=== PATIENT | male | born 1950 | race Caucasian/White ===

== ENCOUNTER 2021-12-10 09:49 | Outpatient (REF) | payer MEDICARE, MEDICAID, SELFPAY ==
[2021-12-10 10:53] LABS: MANUAL DIFF FLAG NO
[2021-12-10 10:56] LABS: Basophils Percent Auto 0.4 % (0-2); Eosinophils Absolute Auto 0.4 X10*3/uL (0.0-0.4); Eosinophils Percent Auto 5.5 % (0-4); Hematocrit 46.7 % (42.0-52.0); Hemoglobin 16.4 g/dl (14.0-18.0); Imm Gran Abs Auto 0.03 X10*3/uL (0.00-0.03); Imm Gran Pct Auto 0.4 % (0.0-0.4); Lymphocytes Absolute Auto 1.6 X10*3/uL (1.2-4.9); Lymphocytes Percent Auto 22.5 % (20-40); Mean Corpuscular HGB Conc 35.1 g/dl (31.0-36.0); Mean Corpuscular Hemoglobin 30.4 pg (27.0-33.0); Mean Corpuscular Volume 86.6 fL (80.0-98.0); Mean Platelet Volume 10.8 fL (9.4-12.4); Monocytes Absolute Auto 0.5 X10*3/uL (0.1-1.2); Monocytes Percent Auto 6.8 % (2-11); Neutrophils Absolute Auto 4.5 x10*3/uL (2.0-8.3); Neutrophils Percent Auto 64.4 % (45-73); Platelet Count 163 X10*3/uL (160-400); Red Blood Count 5.39 X10*6/uL (4.60-5.80); Red Cell Distribution Width 12.6 % (11.0-16.0); White Blood Count 7.1 X10*3/uL (4.8-10.8)
[2021-12-10 11:37] LABS: Appearance Urine CLEAR; Color Urine YELLOW; Glucose Urine UA NEG (NEG); Leukocyte Esterase Urine NEG (NEG); Nitrite Urine NEG (NEG); Specific Gravity - Urine 1.025 (1.005-1.025); Urine Blood TRACE (NEG); Urine Ketones NEG (NEG); Urine Protein NEG (NEG-TRACE)
[2021-12-10 11:46] LABS: Alanine Aminotransferase 20 U/L (0-40); Albumin Level 4.4 g/dL (3.5-5.0); Alkaline Phosphatase 81 U/L (39-117); Anion Gap 12 (12-20); Aspartate Amino Transferase 17 U/L (5-37); Bilirubin Total 0.7 mg/dL (0.0-1.0); Blood Urea Nitrogen 20 mg/dL (9-16); Calcium 9.2 mg/dL (8.4-10.2); Carbon Dioxide 27 mmol/L (22-29); Chloride 104 mmol/L (96-108); Cholesterol 143 mg/dL; Estimated Glomerular Filt Rate > 60; Glucose Fasting 102 mg/dL (60-99); HDL Cholesterol 41 mg/dL; LDL Cholesterol Calculated 77 mg/dl; Sodium 139 mmol/L (135-145); Triglycerides 128 mg/dL
[2021-12-10 11:53] LABS: WBC Urine 0 /HPF (0-4)
[2021-12-10 11:54] LABS: Squamous Epithelial Cell Urine TRACE /LPF
[2021-12-10 12:16] LABS: Prostate Specific Antigen Scr 4.11 ng/mL (<0.05-4.0); TSH reflex Free T4 1.37 uIU/mL (0.32-4.0)
[2021-12-10 12:18] LABS: Creatinine Urine 149.29 mg/dL; Microalbum/Creatinine Ratio Ur 5.3 ug/mg cr
== END 2021-12-10 09:50 | disposition home or self-care (01) ==
LOC: HO.WFDLDS 09:49
PROVIDERS: Visit Provider Family Medicine
DX: Z00.00 Encounter for general adult medical examination without abnormal findings (principal); Z12.5 Encounter for screening for malignant neoplasm of prostate; I10 Essential (primary) hypertension
CPT/HCPCS: 36415; 80053; 80061; 81001; 82043; 84153; 84443; 85025

== ENCOUNTER 2022-01-27 08:17 | Outpatient (REF) | payer MEDICARE, MEDICAID, SELFPAY ==
--- NOTE | ~2022-01-27 | XR_ITS ---
EXAMINATION: XR KNEE, RIGHT XR KNEE, LEFT CLINICAL INFORMATION: Pain. COMPARISON: None. TECHNIQUE: Lateral and axial views of the right knee. Lateral and axial views of the left knee. FINDINGS: RIGHT KNEE: Bones and soft tissues are normal. No fracture or joint effusion. Alignment is anatomic. Joint spaces are well maintained. There is minimal osteoarthritic change of the patellofemoral compartment laterally. No abnormal soft tissue calcification. LEFT KNEE: Bones and soft tissues are normal. No fracture or joint effusion. Alignment is anatomic. Joint spaces are well maintained. No abnormal soft tissue calcification. XR/XR knee LT 2V IMPRESSION: 1. There is minimal osteoarthritic change of the patellofemoral compartment of the right knee. 2. Unremarkable left knee radiographs. 3. No fracture, dislocation or joint effusion is seen bilaterally.
--- NOTE | ~2022-01-27 | XR_ITS ---
EXAMINATION: XR KNEE AP STANDING CLINICAL INFORMATION: Knee pain. COMPARISON: None TECHNIQUE: AP bilateral standing view of the knees was obtained. FINDINGS: There is maintained medial and lateral compartment joint space both knees maintained normal. No bony erosive changes. There is osteophyte formation along the medial femoral condyle suggestive Samantha stieda lesion left knee from old injury. No acute fracture or lytic process seen. XR/XR knee standing BI IMPRESSION: No acute fracture, dislocation subluxation in either knee joint. Pelligrini Stieda lesion medial femoral condyle right knee from old medial collateral ligament injury
--- NOTE | ~2022-01-27 | XR_ITS ---
EXAMINATION: XR KNEE, RIGHT XR KNEE, LEFT CLINICAL INFORMATION: Pain. COMPARISON: None. TECHNIQUE: Lateral and axial views of the right knee. Lateral and axial views of the left knee. FINDINGS: RIGHT KNEE: Bones and soft tissues are normal. No fracture or joint effusion. Alignment is anatomic. Joint spaces are well maintained. There is minimal osteoarthritic change of the patellofemoral compartment laterally. No abnormal soft tissue calcification. LEFT KNEE: Bones and soft tissues are normal. No fracture or joint effusion. Alignment is anatomic. Joint spaces are well maintained. No abnormal soft tissue calcification. XR/XR knee RT 2V IMPRESSION: 1. There is minimal osteoarthritic change of the patellofemoral compartment of the right knee. 2. Unremarkable left knee radiographs. 3. No fracture, dislocation or joint effusion is seen bilaterally.
== END 2022-01-27 08:18 | disposition home or self-care (01) ==
LOC: HO.HOSX 08:17
PROVIDERS: Visit Provider Physician Assistant
DX: M17.0 Bilateral primary osteoarthritis of knee (principal); M54.16 Radiculopathy, lumbar region
CPT/HCPCS: 20610; 73560; 73565; 99202; J1040

== ENCOUNTER → 2022-02-17 14:51 | Outpatient (BNVA) | payer MEDICARE, MEDICAID, SELFPAY | PROVIDERS: Visit Provider Nurse Practitioner Family | DX: M47.26 Other spondylosis with radiculopathy, lumbar region (principal); M62.830 Muscle spasm of back | CPT/HCPCS: 99202 ==

== ENCOUNTER 2022-04-07 11:13 | Outpatient (REF) | payer MEDICARE, MEDICAID, SELFPAY ==
--- NOTE | ~2022-04-07 | XR_ITS ---
EXAMINATION: XR LUMBOSACRAL SPINE WITH OBLIQUES CLINICAL INFORMATION: Spondylosis without myelopathy or radiculopathy. COMPARISON: None. TECHNIQUE: AP, both oblique, and lateral views of the lumbar spine. Lateral view of the lumbosacral junction. FINDINGS: There is maintained lumbar lordosis. The vertebral heights and alignment are normal. There is minimal loss of L5-S1 disc height. The rest the disc heights are normal. On oblique views, there is no pars defect or listhesis. No lytic or sclerotic process seen. There is a ventral spondylosis at the L5-S1 disc level. The paravertebral soft tissues are normal. XR/XR lumbar spine 6V w bending IMPRESSION: Degenerative disc changes with ventral spondylosis L5-S1 disc level. No visible acute fracture or dislocation seen.
== END 2022-04-07 11:14 | disposition home or self-care (01) ==
LOC: HO.XRAY 11:13
PROVIDERS: PCP Family Medicine; Visit Provider Nurse Practitioner Family
DX: M47.26 Other spondylosis with radiculopathy, lumbar region (principal); M62.830 Muscle spasm of back
CPT/HCPCS: 72114; 99212

== ENCOUNTER 2023-03-24 09:59 | Outpatient (REF) | payer MEDICARE, MEDICAID, SELFPAY ==
[2023-03-24 12:11] LABS: Prostate Specific Antigen Scr 2.89 ng/mL (<0.05-4.0)
== END 2023-03-24 10:00 | disposition home or self-care (01) ==
LOC: HO.WFDLDS 09:59
PROVIDERS: Visit Provider Family Medicine
DX: Z12.5 Encounter for screening for malignant neoplasm of prostate (principal); R97.20 Elevated prostate specific antigen [PSA]
CPT/HCPCS: 36415; 84153

== ENCOUNTER 2023-03-31 15:57 | Outpatient (AMB) | payer MEDICARE, MEDICAID, SELFPAY ==
[2023-03-31 16:04] VITALS: BP 142/74; PULSE 75; O2SAT 96; BMI 23.1
--- NOTE | 2023-03-31 16:04 | A.OFFPC_ITS ---
Vital Signs 03/31/23 16:04 Height 6 ft Weight 170 lb 6 oz BMI 23.1 BP 142/74 H Blood Pressure Location Lt brachial Position Sitting Pulse 75 Pulse Source Pulse Oximeter Pulse Oximetry (%) 96 Oxygen Delivery Method Room Air Intake Visit Reasons: Extended exam with f/u labs and health maint. Intake Note: Patient is here for extended exam with patient complaint if headache pain level at a 10. Patient is concerned about blood pressure jumping around. Sometimes high, sometimes low. Allergies influenza virus vacc trivalent, who Allergy (Intermediate, Verified 03/31/23 16:13) Vomiting, rash Tobacco use date assessed: 03/31/23 Fall risk assessment: No Falls in past year Last assessed Fall Risk: 03/31/23 Dental Screening Dental Screen Date: 03/31/23 Did you have a dental visit in the last 12 months?: Yes Did you have a dental problem in the last 6 months where you did not have access to dental care?: No Was dental information given to patient?: Patient has dentist HPI Extended exam with f/u labs and health maint. HPI Details 72 y/o male presents for an extended exa m with f/u labs and health maintenance. No recent labs to review. Blood pressure today 142/74. He is on losartan-hydrochlorothiazide 50-12.5mg daily. He notes that sometimes his blood pressure at home have been elevated. Pt has complaints of a headache daily at night time. He describes headache as a 10 in the pain scale. He reports he has trialed topiramate before. Pt reports a cough x6 months. He denies smoking. [facility] Medical History Melanoma Surgical History History of eye surgery History of hernia surgery History of lung surgery History of surgery Social History Housing: House Alcohol intake: never Patient Tobacco Use Status: Never used Tobacco e-Cigarette/Vaping Use: Never Used Second Hand Smoke Exposure: No service: No Current occupational status: retired Cognitive needs: Yes (walker/cane) Hearing needs: Yes (hear aide) Vision needs: Yes (glasses) Questionnaire Thrive Questionnaire Date Thrive assessed: 12/09/21 SILVIA-7 AMB Questionnaire SILVIA-7 Date SILVIA - 7 assessed: 12/09/21 Source: Developed by Drs. John Munoz, Amelie Mendez, Kareem Billings and colleagues, with an educational kinsey from [employer]. Review of Systems Const Denies chills, Denies fatigue, Denies fever(s), Denies headache(s) and Denies weakness Eyes Denies change in vision ENT Denies dizziness, Denies headache(s), Denies hearing loss, Denies nasal congestion, Denies sinus pain, Denies sinus pressure and Denies sore throat Card Denies chest pain, Denies lightheadedness, Denies dyspnea and Denies other (palpitations) Resp Reports cough, Denies dyspnea and Denies wheezing GI Denies abdominal pain, Denies melena, Denies hematochezia, Denies change in bowel habits, Denies dyspepsia and Denies nausea Denies hematuria and Denies dysuria Musc Denies abnormal gait, Denies myalgias, Denies arthralgias, Denies numbness and Denies tingling Skin/Breast Denies rash, Denies unusual bruising and Denies wounds Neuro Denies abnormal gait, Denies dizziness, Denies headache(s), Denies memory loss, Denies numbness, Denies Sensory deficit (Neuro), Denies tingling and Denies weakness Psych Denies anxiety, Denies depression and Denies memory loss Endo Denies cold intolerance, Denies fatigue, Denies heat intolerance, Denies polydipsia and Denies polyuria Mario/Lymph Denies easy bleeding and Denies easy bruising Aller/Immun Denies wheezing Physical exam (Primary Care) Vital Signs: Last Vital Signs Pulse 75 03/31/23 16:04 BP 142/74 H 03/31/23 16:04 Pulse Ox 96 03/31/23 16:04 Oxygen Delivery Method Room Air 03/31/23 16:04 BMI result Body Mass Index 23.1 Tobacco/Smoking Status: Tobacco use Status Tobacco use date assessed 03/31/23 03/31/23 16:18 Patient Tobacco Use Status Never used Tobacco 03/31/23 16:11 e-Cigarette/Vaping Use Never Used 03/31/23 16:11 Thrive Assessment: Date of Thrive Assessment Date Thrive assessed 12/09/21 03/31/23 16:11 Const General: no acute distress, well developed, alert and awake Nutritional Appearance: well nourished Orientation/consciousness: patient oriented x3 HENMT Head: Yes normocephalic and Yes atraumatic Ears: hearing grossly normal bilaterally and TM's normal bilaterally General nose exam: Normal external nose present and Normal nares present Mouth: Normal oral and palatal mucosa present and moist mucous membranes Teeth and gingiva: dentition normal Throat: Yes posterior oropharynx normal Eyes General: appearance normal, both eyes and all related structures Pupils: Equal, round and reactive pupils present and Pupil accommodation reflex normal EOM: EOMs intact bilaterally Neck Neck: Yes normal visual inspection, Yes no lymphadenopathy and Yes trachea midline Thyroid: Thyroid normal Carotids: no bruits Lymphatic: no lymphadenopathy noted Chest Chest palpation & inspection: normal inspection of the chest Resp Effort & Inspection: normal respiratory effort Auscultation: clear to auscultation bilaterally Cardio Rate: regular rate Rhythm: regular rhythm Heart sounds: S1 normal heart sound present, S2 normal heart sound present, no gallops, no murmurs and no rubs Bruits: no abdominal aortic bruits and no carotid bruits GI Palpation (GI): No Abdominal aortic bruit present, Soft to palpation, nontender, No hepatosplenomegaly present and No Rebound tenderness present Auscultation: normal bowel sounds General: Yes no CVA tenderness Back/Spine/Pelvis Back: no CVA tenderness Cervical Spine: cervical ROM normal and No Cervical spine tenderness Thoracic/Lumbar Spine: thoraco-lumbar ROM normal, No pain with thoraco-lumbar ROM, No thoracic spinal tenderness and No lumbar spinal tenderness Skin Lesions: no lesions Rashes: no rashes Trauma: no lacerations or abrasions Wounds: no wounds Nails: normal Neuro General: patient oriented x3 Cranial nerves: Yes Equal, round and reactive pupils present Cognition (Neuro): normal cognition Gait exam (Neuro): Normal gait present Motor exam (neuro): 5/5 motor strength present throughout Sensory Exam: No Sensory deficit (Neuro) Deep tendon reflexes (DTR's): Right patellar reflex intensity grade: 2+ and Left patellar reflex intensity grade: 2+ Extrem General: Yes normal to inspection and No edema Psych Appearance: grossly normal Affect: normal affect Attitude: cooperative Thought process: Normal thought process present Assessment and Plan Assessment & Plan (1) Hypertension: Code(s): I10 - Essential (primary) hypertension Plan: Blood?pressure?is?too?high Increasing?losartan?hydrochlorothiazide (2) Headache: Code(s): R51.9 - Headache, unspecified Plan: Left-sided?headaches?for?months Has?tried?topiramate Will?try?gabapentin Referred?to?neurology Also?uses?Aleve.??May?be?getting?rebound?headaches?and?we?can?discuss?this?at?a? subsequent?visit?if?not?improving. (3) Screening for colon cancer: Code(s): Z12.11 - Encounter for screening for malignant neoplasm of colon Plan: Declines?colonoscopy?for?now.??Will?try?Cologuard?test (4) Cough: Code(s): R05.9 - Cough, unspecified Plan: Cough?for?over?6?months. 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 We?can?continue?to?monitor?annually (6) Adult general medical exam: Code(s): Z00.00 - Encounter for general adult medical examination without abnormal findings Plan: 72-year-old?male?presents?for?an?extended?exam Encouraged?healthy?diet?with?active?lifestyle?and?plenty?of?exercise Orders: Orders XR chest 2V Today R05.9 - Cough, unspecified Referrals Cologuard Test Z12.11 - Encounter for screening for malignant neoplasm of colon, Z12.12 - Encounter for screening for malignant neoplasm of rectum Medications: New losartan-hydrochlorothiazide 100-12.5 mg 1 tab PO DAILY 30 tabs 1RF 30 days gabapentin 300 mg PO BEDTIME 30 caps 1RF 30 days Discontinued losartan-hydrochlorothiazide 50-12.5 mg Discontinued Reason: Doctor's Order 1 tab PO DAILY 90 days 90 tabs 3RF Coding Level of Care Code Est Pt Level 4 (90113) Diagnoses Hypertension I10 Headache R51.9 Screening for colon cancer Z12.11 Cough R05.9 Screening for prostate cancer Z12.5 Adult general medical exam Z00.00
== END 2023-03-31 17:01 | disposition home or self-care (01) ==
PROVIDERS: PCP Family Medicine; Visit Provider Family Medicine
DX: I10 Essential (primary) hypertension (principal); R51.9 Headache, unspecified; Z12.11 Encounter for screening for malignant neoplasm of colon; R05.9 Cough, unspecified; Z12.5 Encounter for screening for malignant neoplasm of prostate; Z00.00 Encounter for general adult medical examination without abnormal findings
CPT/HCPCS: 99214

== ENCOUNTER 2023-07-06 09:48 | Outpatient (AMB) | payer MEDICARE, MEDICAID, SELFPAY ==
--- NOTE | 2023-07-06 10:05 | A.OFFPC_ITS ---
Vital Signs 07/06/23 10:06 Height 6 ft Weight 170 lb BMI 23.1 BP 138/70 Blood Pressure Location Lt brachial Position Sitting Respiration 13 Pulse 79 Pulse Source Pulse Oximeter Pulse Oximetry (%) 97 Oxygen Delivery Method Room Air Intake Visit Reasons: f/u hypertension Intake Note: Patient is here to follow up on hypertension. Patient is accompanied by his [id number], Katarzyna. Patient's daughter states patient was referred to [facility] and it was determined to be $600 for the visit to [place] neurolog[facility] due to prior authorization not being filed for the specialty office. Patient is still experiencing headaches and pain in his bilateral shoulders, and back pain due to arthritis. Patient has been diagnosed with rheumatoid arthritis and daughter is asking for a referral to help manage this. Residential Therapist Required: No Accompanied by: Daughter Allergies influenza virus vacc trivalent, who Allergy (Intermediate, Verified 07/06/23 10:11) Vomiting, rash Tobacco use date assessed: 03/31/23 Fall risk assessment: No Falls in past year Last assessed Fall Risk: 07/06/23 Dental Screening Dental Screen Date: 07/06/23 Did you have a dental visit in the last 12 months?: Yes Did you have a dental problem in the last 6 months where you did not have access to dental care?: No Was dental information given to patient?: Patient has dentist HPI f/u hypertension HPI Details 72 y/o male presents to f/u hypertension . Also f/u chronic cough/chronic headaches. Blood pressure today 138/70. He is on losartan-hydrochlorothiazide 100-12.5mg daily. Had increased his combo pill last office visit. Has trialed topiramate for headaches in the past - trialing gabapentin and referred to Neurology. They note gabapentin has not helped but does note topiramate has helped before in the past. He continues to take alleve everyday. Pt also has complaints of shoulder pain. [facility] Medical History Melanoma Surgical History History of eye surgery History of hernia surgery History of lung surgery History of surgery Social History Housing: House Alcohol intake: never Patient Tobacco Use Status: Never used Tobacco e-Cigarette/Vaping Use: Never Used Second Hand Smoke Exposure: No service: No Current occupational status: retired Cognitive needs: Yes (walker/cane) Hearing needs: Yes (hear aide) Vision needs: Yes (glasses) Questionnaire Thrive Questionnaire Date Thrive assessed: 12/09/21 SILVIA-7 AMB Questionnaire SILVIA-7 Date SILVIA - 7 assessed: 12/09/21 Source: Developed by Drs. John Munoz, Amelie Mendez, Kareem Billings and colleagues, with an educational kinsey from [employer] Physical exam (Primary Care) Vital Signs: Last Vital Signs Pulse 79 07/06/23 10:06 Resp 13 07/06/23 10:06 BP 138/70 07/06/23 10:06 Pulse Ox 97 07/06/23 10:06 Oxygen Delivery Method Room Air 07/06/23 10:06 BMI result Body Mass Index 23.1 Tobacco/Smoking Status: Tobacco use Status Tobacco use date assessed 03/31/23 07/06/23 10:13 Patient Tobacco Use Status Never used Tobacco 07/06/23 10:13 e-Cigarette/Vaping Use Never Used 07/06/23 10:13 Thrive Assessment: Date of Thrive Assessment Date Thrive assessed 12/09/21 07/06/23 10:13 Extrem Other: Bilateral shoulder pain, pain with abduction to 90 degrees, pain with internal rotation Assessment and Plan Assessment & Plan (1) Hypertension: Code(s): I10 - Essential (primary) hypertension Plan: Blood?pressure?is?controlled.??Goal?is?less?than?140/90 Continue?current?medication (2) Headache: Code(s): R51.9 - Headache, unspecified Plan: Ongoing?headaches. Resume?topiramate Avoid?NSAIDs Also?gets?posterior?neck?pain?so?referring?to?physical?therapy Patient?had?been?referred?to?neurology?but?has?not?had?an?appo intment?as?it?required?a?prior?authorization. 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 (3) Cough: Code(s): R05.9 - Cough, unspecified Plan: Patient?has?not?gotten?chest?x-ray?done?yet?but?will?do?so?and?we?can?follow-up? on?results?at?subsequent?visit (4) Shoulder pain: Code(s): M25.519 - Pain in unspecified shoulder Plan: Bilateral?shoulder?pain?with?abduction?and?internal?rotation Possible?rotator?cuff?strains/injury Start?physical?therapy (5) Cervicalgia: Code(s): M54.2 - Cervicalgia Plan: Start?physical?therapy This?may?also?be?a?cause?of?his?headaches?as?well Orders: Orders PT Evaluation and Treatment Today M25.519 - Pain in unspecified shoulder, M54.2 - Cervicalgia Medications: Refilled topiramate 50 mg PO DAILY 90 tabs 3RF 90 days Coding Level of Care Code Est Pt Level 4 (45442) Diagnoses Hypertension I10 Headache R51.9 Cough R05.9 Shoulder pain M25.519 Cervicalgia M54.2
[2023-07-06 10:06] VITALS: BP 138/70; PULSE 79; RESP 13; O2SAT 97; BMI 23.1
== END 2023-07-06 10:43 | disposition home or self-care (01) ==
PROVIDERS: PCP Family Medicine; Visit Provider Family Medicine
DX: I10 Essential (primary) hypertension (principal); R51.9 Headache, unspecified; R05.9 Cough, unspecified; M25.519 Pain in unspecified shoulder; M54.2 Cervicalgia
CPT/HCPCS: 99214

== ENCOUNTER 2023-07-07 11:34 | Outpatient (REF) | payer MEDICARE, SELFPAY ==
--- NOTE | ~2023-07-07 | XR_ITS ---
EXAMINATION: XR CHEST CLINICAL INFORMATION: Cough COMPARISON: None available. TECHNIQUE: 2 views of the chest were obtained. FINDINGS: Both lungs are well-expanded without infiltrates or nodules. Linear scarring/atelectasis seen through the right lower lung cardiomediastinal silhouette revealed tortuosity of aorta. No evidence of pleural effusion. Osseous structures unremarkable. XR/XR chest 2V IMPRESSION: No active cardiopulmonary disease. Scarring/atelectasis has a right lower lobe
== END 2023-07-07 11:35 | disposition home or self-care (01) ==
LOC: HO.XRAY 11:34
PROVIDERS: PCP Family Medicine; Visit Provider Family Medicine
DX: R05.9 Cough, unspecified (principal)
CPT/HCPCS: 71046

== ENCOUNTER 2023-08-13 09:45 | Outpatient (REF) | payer MEDICARE, SELFPAY ==
[2023-08-13 12:05] LABS: Erythrocyte Sedimentation Rate 2 MM/HR (0-15)
[2023-08-13 15:05] LABS: C Reactive Protein 0.12 mg/dL (< or = 0.50)
== END 2023-08-13 09:46 | disposition home or self-care (01) ==
LOC: HO.WFDLDS 09:45
PROVIDERS: Visit Provider Psychiatry & Neurology Neurology
DX: G44.001 Cluster headache syndrome, unspecified, intractable (principal)
CPT/HCPCS: 36415; 85652; 86140

== ENCOUNTER 2023-09-10 11:00 | Outpatient (RCR) | payer MEDICARE, SELFPAY ==
[2023-08-05 12:54] VITALS: BP 138/80; PULSE 84; O2SAT 97
== END 2023-12-20 07:27 | disposition home or self-care (01) ==
LOC: HO.PTWFD 11:00
PROVIDERS: PCP Family Medicine; Visit Provider Family Medicine
DX: M54.2 Cervicalgia (principal); M25.512 Pain in left shoulder
CPT/HCPCS: 97110; 97140; 97150; 97161

== ENCOUNTER 2023-10-04 09:30 | Outpatient (AMB) | payer MEDICARE, MEDICAID, SELFPAY ==
--- NOTE | 2023-10-04 09:33 | MHC.PC.OV ---
Vital Signs 10/04/23 09:34 Height 6 ft Weight 171 lb BMI 23.2 BP 122/74 Blood Pressure Location Lt brachial Position Sitting Pulse 87 Pulse Oximetry (%) 98 Oxygen Delivery Method Room Air Intake Visit Reasons: f/u hypertension, chronic conditions Intake Note: Patient is following up on hypertension today, and chronic conditions. Allergies influenza virus vacc trivalent, who Allergy (Intermediate, Verified 10/04/23 09:36) Vomiting, rash Medication List - Last Reconciled 10/04/23 by Bartolome Goncalves MD acetaminophen ER 650 mg PO TID PRN 90 days albuterol sulfate 90 mcg/actuation 2 puffs inhalation Q4-6H PRN 30 days aspirin 81 mg PO DAILY 90 days atorvastatin 10 mg PO DAILY 90 days diclofenac sodium 1% 2 grams topical QID 30 days gabapentin 300 mg PO BEDTIME 30 days losartan-hydrochlorothiazide 100-12.5 mg 1 tab PO DAILY 90 days argkbyod-jvn-GV-lycopen-lutein 0.4 mg-300 mcg- 250 mcg (Centrum Silver) 1 tab PO DAILY 90 days omega-3 fatty acids-fish oil 340-1,000 mg 1 cap PO DAILY 90 days omeprazole 20 mg PO DAILY 90 days tamsulosin 0.4 mg PO DAILY 90 days topiramate 50 mg PO DAILY 90 days vit C,M-Sb-stvww-lutein-zeaxan 250-90-40-1 mg (PreserVision AREDS-2) 1 cap PO DAILY 90 days Tobacco use date assessed: 10/04/23 Fall risk assessment: No Falls in past year Last assessed Fall Risk: 10/04/23 Dental Screening Dental Screen Date: 10/04/23 Did you have a dental visit in the last 12 months?: Yes Did you have a dental problem in the last 6 months where you did not have access to dental care?: No Was dental information given to patient?: Patient has dentist HPI f/u hypertension, chronic conditions HPI Details 73 y/o male presents to f/u hypertension, chronic conditions. Blood pressure today 122/74. He is on losartan-HCTZ 100-12.5mg daily. They report ongoing headaches. Has an appt. with neurology. [facility] Medical History Melanoma Surgical History History of eye surgery History of hernia surgery History of lung surgery History of surgery Social History Housing: House Alcohol intake: never Patient Tobacco Use Status: Never used Tobacco e-Cigarette/Vaping Use: Never Used Second Hand Smoke Exposure: No service: No Current occupational status: retired Cognitive needs: Yes (walker/cane) Hearing needs: Yes (hear aide) Vision needs: Yes (glasses) Questionnaire PHQ-9 Over the last 2 weeks, how often have you been bothered by any of the following problems? 1. Little interest or pleasure in doing things: not at all 2. Feeling down, depressed, or hopeless: not at all 3. Trouble falling or staying asleep, or sleeping too much: not at all 4. Feeling tired or having little energy: not at all 5. Poor appetite or overeating: not at all 6. Feeling bad about yourself - or that you are a failure or have let yourself or your family down: not at all 7. Trouble concentrating on things, such as reading the newspaper or watching television: not at all 8. Moving or speaking so slowly that other people could have noticed. Or the opposite - being so fidgety or restless that you have been moving around a lot more than usual: not at all 9. Thoughts that you would be better off or of hurting yourself in some way: not at all Total score: 0 Depression Screening Interpretation: Negative Depression Screening Done: Yes 27870 - PHQ-9 Billing: Yes Source: Developed by Drs. John Munoz, Amelie Mendez, Kareem Billings and colleagues, with an educational kinsey from [employer]. Thrive Questionnaire Date Thrive assessed: 12/09/21 SILVIA-7 AMB Questionnaire SILVIA-7 Date SILVIA - 7 assessed: 10/04/23 Feeling nervous, anxious, or on edge: 1 = Several days Not being able to stop or control worryin = Several days Worrying too much about different things: 3 = Nearly every day Trouble relaxin = Nearly every day Being so restless that it is hard to sit still: 3 = Nearly every day Becoming easily annoyed or irritable: 3 = Nearly every day Feeling afraid as if something awful might happen: 0 = Not at all Total SILVIA-7 score (0-4 normal; 5-9 mild; 10-14 moderate; 15-21 severe): 14 Source: Developed by Drs. John Munoz, Amelie Mendez, Kareem Billings and colleagues, with an educational kinsey from [employer]. SILVIA-7 Assessment Billing SILVIA-7 Assessment Tool: SILVIA-7 Assessment 50216 Physical exam (Primary Care) Vital Signs: Last Vital Signs Pulse 87 10/04/23 09:34 BP 122/74 10/04/23 09:34 Pulse Ox 98 10/04/23 09:34 Oxygen Delivery Method Room Air 10/04/23 09:34 BMI result Body Mass Index 23.2 Tobacco/Smoking Status: Tobacco use Status Tobacco use date assessed 10/04/23 10/04/23 09:37 Patient Tobacco Use Status Never used Tobacco 10/04/23 09:37 e-Cigarette/Vaping Use Never Used 10/04/23 09:37 PHQ-9: PHQ-9 Score PHQ-9: Total score 0 10/04/23 10:04 Depression Screening Interpretation: Negative Thrive Assessment: Date of Thrive Assessment Date Thrive assessed 12/09/21 10/04/23 09:37 Assessment and Plan Assessment & Plan (1) Hypertension: Code(s): I10 - Essential (primary) hypertension Plan: Blood?pressure?is?controlled.??Goal?is?less?than?140/90 Continue?current?medication (2) Headache: Code(s): R51.9 - Headache, unspecified Plan: Ongoing?headaches, cluster?or?migraines?style?and?neurology?gave?him?sumatriptan?which?is?helping?when?he?needs?it. Follow-up?with?Neurology?as?recommended Coding Level of Care Code Est Pt Level 3 (94949) Diagnoses Hypertension I10 Headache R51.9 Additional Codes SILVIA-7 Assessment Billing - SILVIA-7 Assessment Tool: SILVIA-7 Assessment 75072 ([id number])
[2023-10-04 09:34] VITALS: BP 122/74; PULSE 87; O2SAT 98; BMI 23.2
== END 2023-10-04 10:13 | disposition home or self-care (01) ==
PROVIDERS: PCP Family Medicine; Visit Provider Family Medicine
DX: I10 Essential (primary) hypertension (principal); R51.9 Headache, unspecified
CPT/HCPCS: 99213

== ENCOUNTER 2024-01-06 08:36 | Outpatient (AMB) | payer MEDICARE, SELFPAY ==
--- NOTE | 2024-01-06 08:49 | A.OFFPC_ITS ---
Vital Signs 01/06/24 08:52 Height 6 ft Weight 172 lb 8 oz BMI 23.4 BP 140/82 H Blood Pressure Location Rt brachial Position Sitting Respiration 14 Pulse 76 Pulse Source Pulse Oximeter Temp 97.8 F Temp Source Temporal Artery Scan Pulse Oximetry (%) 96 Oxygen Delivery Method Room Air Intake Visit Reasons: f/u hypertension chronic conditions Intake Note: Patient's blood pressure has been fluctuating with current medications and doesn't believe that is working the way it is suppose to. Patient has also been bruising easily lately. Safety Relief Valve Technician Required: Yes Safety Relief Valve Technician Name: Daughter Accompanied by: Daughter Allergies influenza virus vacc trivalent, who Allergy (Intermediate, Verified 01/06/24 08:56) Vomiting, rash Medication List - Last Reconciled 01/06/24 by Bartolome Goncalves MD acetaminophen ER 650 mg PO TID PRN 90 days albuterol sulfate 90 mcg/actuation 2 puffs inhalation Q4-6H PRN 30 days aspirin 81 mg PO DAILY 90 days atorvastatin 10 mg PO DAILY 90 days diclofenac sodium 1% 2 grams topical QID 30 days gabapentin 300 mg PO BEDTIME 30 days losartan-hydrochlorothiazide 100-12.5 mg 1 tab PO DAILY 90 days yplrsgmp-fxs-ZE-lycopen-lutein 0.4 mg-300 mcg- 250 mcg (Centrum Silver) 1 tab PO DAILY 90 days omega-3 fatty acids-fish oil 340-1,000 mg 1 cap PO DAILY 90 days omeprazole 20 mg PO DAILY 90 days tamsulosin 0.4 mg PO DAILY 90 days topiramate 50 mg PO DAILY 90 days vit C,K-Pf-qwado-lutein-zeaxan 250-90-40-1 mg (PreserVision AREDS-2) 1 cap PO DAILY 90 days Tobacco use date assessed: 10/04/23 Fall risk assessment: No Falls in past year Last assessed Fall Risk: 01/06/24 Dental Screening Dental Screen Date: 10/04/23 HPI f/u hypertension chronic conditions HPI Details 73 y/o male presents to f/u hypertension , headaches. Blood pressure today 140/82. He is on losartan-hydrochlorothiazide 100-12.5mg daily. Pt notes blood pressure has been fluctuating. He has complaints of easy bruising. [facility] Medical History Melanoma Surgical History History of eye surgery History of hernia surgery History of lung surgery History of surgery Social History Housing: House Alcohol intake: never Patient Tobacco Use Status: Never used Tobacco e-Cigarette/Vaping Use: Never Used Second Hand Smoke Exposure: No service: No Current occupational status: retired Cognitive needs: Yes (walker/cane) Hearing needs: Yes (hear aide) Vision needs: Yes (glasses) Questionnaire Thrive Questionnaire Date Thrive assessed: 12/09/21 SILVIA-7 AMB Questionnaire SILVIA-7 Date SILVIA - 7 assessed: 10/04/23 Source: Developed by Drs. John Munoz, Amelie Mendez, Kareem Billings and colleagues, with an educational kinsey from [email or web address]. Review of Systems Const Denies chills, Denies fatigue, Denies fever(s), Denies headache(s) and Denies weakness ENT Denies dizziness and Denies headache(s) Card Denies dyspnea Resp Denies cough, Denies dyspnea, Denies wheezing and Denies other (shortness of breath) Musc Denies numbness and Denies tingling Neuro Denies dizziness, Denies headache(s), Denies numbness, Denies tingling and Denies weakness Psych Denies anxiety and Denies depression Endo Denies fatigue Mario/Lymph Reports easy bruising Aller/Immun Denies wheezing Physical exam (Primary Care) Vital Signs: Last Vital Signs Temp 97.8 F 01/06/24 08:52 Pulse 76 01/06/24 08:52 Resp 14 01/06/24 08:52 BP 140/82 H 01/06/24 08:52 Pulse Ox 96 01/06/24 08:52 Oxygen Delivery Method Room Air 01/06/24 08:52 BMI result Body Mass Index 23.4 Tobacco/Smoking Status: Tobacco use Status Tobacco use date assessed 10/04/23 01/06/24 08:50 Patient Tobacco Use Status Never used Tobacco 01/06/24 08:50 e-Cigarette/Vaping Use Never Used 01/06/24 08:50 Thrive Assessment: Date of Thrive Assessment Date Thrive assessed 06/14/22 07/11/24 08:50 Const General: well developed; No acute distress Nutritional Appearance: well nourished Orientation/consciousness: patient oriented x3 HENMT Head: Yes normocephalic and Yes atraumatic Eyes General: appearance normal, both eyes and all related structures Pupils: Equal, round and reactive pupils present EOM: EOMs intact bilaterally Resp Effort & Inspection: normal respiratory effort Skin Other: Mild?bruising?on?bilateral?forearms Neuro General: patient oriented x3 and gait normal Cranial nerves: Yes Equal, round and reactive pupils present Psych Affect: normal affect Assessment and Plan Assessment & Plan (1) Hypertension: Code(s): I10 - Essential (primary) hypertension Plan: Blood?pressure?is?still?too?high. Will?change?losartan-hydrochlorothiazide?100/12.5?to?losartan- hydrochlorothiazide?100/25?mg?daily He?can?use?clonidine?p.r.n.?systolic?blood?pressures?greater?than?160 Will?follow-up?in?a?month (2) Easy bruising: Code(s): R23.3 - Spontaneous ecchymoses Plan: Likely?secondary?to?aspirin?use.??He?is?using?aspirin?81?mg?daily?OTC No?history?of?AL?or?CVA He?will?hold?off?on?this Medications: New losartan-hydrochlorothiazide 100-25 mg 1 tab PO DAILY 90 days 90 tabs 3RF clonidine HCl 0.05 mg (1/2 x 0.1 mg) PO DAILY 30 days PRN 30 tabs 1RF Systolic BP > 160 Discontinued losartan-hydrochlorothiazide 100-12.5 mg Discontinued Reason: Doctor's Order 1 tab PO DAILY 90 days 90 tabs 3RF Coding Level of Care Code Est Pt Level 3 (29749) Diagnoses Hypertension I10 Easy bruising R23.3
[2024-01-06 08:52] VITALS: BP 140/82; PULSE 76; RESP 14; TEMP 36.6; O2SAT 96; BMI 23.4
== END 2024-01-06 12:04 | disposition home or self-care (01) ==
PROVIDERS: PCP Family Medicine; Visit Provider Family Medicine
DX: I10 Essential (primary) hypertension (principal); R23.3 Spontaneous ecchymoses
CPT/HCPCS: 99213

== ENCOUNTER 2024-01-28 11:04 | Outpatient (AMB) | payer MEDICARE, SELFPAY ==
--- NOTE | 2024-01-28 11:18 | A.OFFPC_ITS ---
Vital Signs 01/28/24 11:21 Height 6 ft Weight 171 lb 6 oz BMI 23.2 BP 126/70 Blood Pressure Location Rt brachial Position Sitting Respiration 18 Pulse 77 Pulse Source Pulse Oximeter Temp 97.9 F Temp Source Oral Pulse Oximetry (%) 98 Oxygen Delivery Method Room Air Intake Visit Reasons: [facility] 01/25 Chest pain Intake Note: chest x12 days was seen at [facility] on wednesday/wed per patient dianelyser egk and labs were done pt stiil having chest pain with out any relief. he states its radiating pain from LT side of his chest to his back and radiating down his left arm. Accompanied by: Grand Child Allergies influenza virus vacc trivalent, who Allergy (Intermediate, Verified 01/28/24 11:19) Vomiting, rash Medication List - Last Reconciled 01/28/24 by Bartolome Goncalves MD acetaminophen ER 650 mg PO TID PRN 90 days albuterol sulfate 90 mcg/actuation 2 puffs inhalation Q4-6H PRN 30 days aspirin 81 mg PO DAILY 90 days atorvastatin 10 mg PO DAILY 90 days clonidine HCl 0.05 mg (1/2 x 0.1 mg) PO DAILY PRN 30 days diclofenac sodium 1% 2 grams topical QID 30 days gabapentin 300 mg PO BEDTIME 30 days losartan-hydrochlorothiazide 100-25 mg 1 tab PO DAILY 90 days ifavjutq-kwo-BW-lycopen-lutein 0.4 mg-300 mcg- 250 mcg (Centrum Silver) 1 tab PO DAILY 90 days omega-3 fatty acids-fish oil 340-1,000 mg 1 cap PO DAILY 90 days omeprazole 20 mg PO DAILY 90 days tamsulosin 0.4 mg PO DAILY 90 days topiramate 50 mg PO DAILY 90 days vit C,B-Sk-ljkai-lutein-zeaxan 250-90-40-1 mg (PreserVision AREDS-2) 1 cap PO DAILY 90 days Tobacco use date assessed: 01/28/24 Fall risk assessment: No Falls in past year Last assessed Fall Risk: 01/28/24 Dental Screening Dental Screen Date: 10/04/23 HPI [facility] 01/25 Chest pain HPI Details 73 y/o male presents to f/u ED visit 12/28 07/21 for chest pain. Chest x-ray/EKG and labs were reassuring. He had noted chest pain that worsens when pressing on it. He reports ongoing chest pain that radiates from L side of his chest and down his L arm. [facility] Medical History Melanoma Surgical History History of eye surgery History of hernia surgery History of lung surgery History of surgery Social History Housing: House Alcohol intake: never Patient Tobacco Use Status: Never used Tobacco e-Cigarette/Vaping Use: Never Used Second Hand Smoke Exposure: No service: No Current occupational status: retired Cognitive needs: Yes (walker/cane) Hearing needs: Yes (hear aide) Vision needs: Yes (glasses) Questionnaire Thrive Questionnaire Date Thrive assessed: 12/09/21 SILVIA-7 AMB Questionnaire SILVIA-7 Date SILVIA - 7 assessed: 10/04/23 Source: Developed by Drs. John Munoz, Amelie Mendez, Kareem Billings and colleagues, with an educational kinsey from [employer]. Review of Systems Const Denies chills, Denies fatigue, Denies fever(s), Denies headache(s) and Denies weakness ENT Denies dizziness and Denies headache(s) Card Reports chest pain and Denies dyspnea Resp Denies cough, Denies dyspnea, Denies wheezing and Denies other (shortness of breath) Musc Denies numbness and Denies tingling Neuro Denies dizziness, Denies headache(s), Denies numbness, Denies tingling and Denies weakness Psych Denies anxiety and Denies depression Endo Denies fatigue Aller/Immun Denies wheezing Physical exam (Primary Care) Vital Signs: Last Vital Signs Temp 97.9 F 01/28/24 11:21 Pulse 77 01/28/24 11:21 Resp 18 01/28/24 11:21 BP 126/70 01/28/24 11:21 Pulse Ox 98 01/28/24 11:21 Oxygen Delivery Method Room Air 01/28/24 11:21 BMI result Body Mass Index 23.2 Tobacco/Smoking Status: Tobacco use Status Tobacco use date assessed 01/28/24 01/28/24 11:28 Patient Tobacco Use Status Never used Tobacco 01/28/24 11:28 e-Cigarette/Vaping Use Never Used 01/28/24 11:28 Thrive Assessment: Date of Thrive Assessment Date Thrive assessed 12/09/21 01/28/24 11:28 Const General: well developed; No acute distress Nutritional Appearance: well nourished Orientation/consciousness: patient oriented x3 HENMT Head: Yes normocephalic and Yes atraumatic Eyes General: appearance normal, both eyes and all related structures Pupils: Equal, round and reactive pupils present EOM: EOMs intact bilaterally Resp Effort & Inspection: normal respiratory effort Neuro General: patient oriented x3 and gait normal Cranial nerves: Yes Equal, round and reactive pupils present Psych Affect: normal affect Assessment and Plan Assessment & Plan (1) Chest pain: Code(s): R07.9 - Chest pain, unspecified Plan: Reproduc ible?chest?wall?pain.??Recent?visit?to?the?ED?demonstrated?EKG?and?chest?x- ray?were?reassuring?and?troponin?levels?were?negative. This?appears?to?be?muscular?strain. Take?ibuprofen?3?times?a?day.??Can ?use?acetaminophen?intermittently.??Hydrate?well Diclofenac?gel.??Ice?and?heat When?he?begins?to?feel?better?he?can?start?gentle?stretching. If?not?improving?will?re-evaluate?patient.? Medications: New diclofenac sodium 1% 4 grams topical QID 100 grams 0RF 14 days ibuprofen 600 mg PO TID 42 tabs 0RF 14 days Coding Level of Care Code Est Pt Level 3 (54595) Diagnoses Chest pain R07.9
[2024-01-28 11:21] VITALS: BP 126/70; PULSE 77; RESP 18; TEMP 36.6; O2SAT 98; BMI 23.2
== END 2024-01-28 12:35 | disposition home or self-care (01) ==
PROVIDERS: PCP Family Medicine; Visit Provider Family Medicine
DX: R07.9 Chest pain, unspecified (principal)
CPT/HCPCS: 99213

== ENCOUNTER 2024-02-17 10:08 | Outpatient (AMB) | payer MEDICARE, SELFPAY ==
--- NOTE | 2024-02-17 10:32 | MHC.PC.OV ---
Vital Signs 02/17/24 10:35 BP 120/80 Blood Pressure Location Rt brachial Position Sitting Respiration 16 Pulse 83 Pulse Source Pulse Oximeter Temp 97.5 F Temp Source Tympanic Pulse Oximetry (%) 95 Oxygen Delivery Method Room Air Intake Visit Reasons: Blood pressure Intake Note: follow up wit HTN and body aches and pain Allergies gabapentin Allergy (Severe, Verified 02/17/24 10:35) Fainting influenza virus vacc trivalent, who Allergy (Intermediate, Verified 02/17/24 10:33) Vomiting, rash Tobacco use date assessed: 01/28/24 Dental Screening Dental Screen Date: 10/04/23 HPI Blood pressure HPI Details 73 y/o male presents to f/u hypertension. Blood pressure today is 120/80. He is on losartan-hydrochlorothiazide 100-25mg daily. They report chest wall pain has resolved. COUNT INCLUDES [facility] Medical History Melanoma Surgical History History of eye surgery History of hernia surgery History of lung surgery History of surgery Social History Housing: House Alcohol intake: never Patient Tobacco Use Status: Never used Tobacco e-Cigarette/Vaping Use: Never Used Second Hand Smoke Exposure: No service: No Current occupational status: retired Cognitive needs: Yes (walker/cane) Hearing needs: Yes (hear aide) Vision needs: Yes (glasses) Questionnaire Thrive Questionnaire Date Thrive assessed: 12/09/21 SILVIA-7 AMB Questionnaire SILVIA-7 Date SILVIA - 7 assessed: 10/04/23 Source: Developed by Drs. John Munoz, Amelie Mendez, Kareem Billings and colleagues, with an educational kinsey from [employer]. Review of Systems Const Denies chills, Denies fatigue, Denies fever(s), Denies headache(s) and Denies weakness ENT Denies dizziness and Denies headache(s) Card Denies dyspnea Resp Denies cough, Denies dyspnea, Denies wheezing and Denies other (shortness of breath) Musc Denies numbness and Denies tingling Neuro Denies dizziness, Denies headache(s), Denies numbness, Denies tingling and Denies weakness Psych Denies anxiety and Denies depression Endo Denies fatigue Aller/Immun Denies wheezing Physical exam (Primary Care) Vital Signs: Last Vital Signs Temp 97.5 F 02/17/24 10:35 Pulse 83 02/17/24 10:35 Resp 16 02/17/24 10:35 BP 120/80 02/17/24 10:35 Pulse Ox 95 02/17/24 10:35 Oxygen Delivery Method Room Air 02/17/24 10:35 Tobacco/Smoking Status: Tobacco use Status Tobacco use date assessed 01/28/24 02/17/24 10:38 Patient Tobacco Use Status Never used Tobacco 02/17/24 10:38 e-Cigarette/Vaping Use Never Used 02/17/24 10:38 Thrive Assessment: Date of Thrive Assessment Date Thrive assessed 12/09/21 02/17/24 10:38 Const General: well developed; No acute distress Nutritional Appearance: well nourished Orientation/consciousness: patient oriented x3 HENMT Head: Yes normocephalic and Yes atraumatic Eyes General: appearance normal, both eyes and all related structures Pupils: Equal, round and reactive pupils present EOM: EOMs intact bilaterally Resp Effort & Inspection: normal respiratory effort Auscultation: clear to auscultation bilaterally Cardio Rate: regular rate Rhythm: regular rhythm Heart sounds: S1 normal heart sound present, S2 normal heart sound present, no gallops, no murmurs and no rubs Neuro General: patient oriented x3 and gait normal Cranial nerves: Yes Equal, round and reactive pupils present Psych Affect: normal affect Assessment and Plan Assessment & Plan (1) Hypertension: Code(s): I10 - Essential (primary) hypertension Plan: Blood?pressure?is?controlled.??Goal?is?less?than?130/80 Continue?current?medication (2) Chest pain: Code(s): R07.9 - Chest pain, unspecified Plan: Patient?had?had?chest?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 My?evaluation?revealed?reproducible?chest?wall?pain.??Provided?NSAIDs?and?topical?medications.??Patient?says?pain?has?resolved. Coding Level of Care Code Est Pt Level 3 (88736) Diagnoses Hypertension I10 Chest pain R07.9
[2024-02-17 10:35] VITALS: BP 120/80; PULSE 83; RESP 16; TEMP 36.4; O2SAT 95
== END 2024-02-17 11:07 | disposition home or self-care (01) ==
PROVIDERS: PCP Family Medicine; Visit Provider Family Medicine
DX: I10 Essential (primary) hypertension (principal); R07.9 Chest pain, unspecified
CPT/HCPCS: 99213

== ENCOUNTER 2024-05-19 08:54 | Outpatient (REF) | payer MEDICARE, SELFPAY ==
[2024-05-19 11:52] LABS: Influenza A PCR NEGATIVE (Negative); Influenza B PCR NEGATIVE (Negative); Resp Syncy Virus RNA Qual PCR NEGATIVE (Negative); SARS COV2 PCR INHOUSE NEGATIVE (Negative)
== END 2024-05-19 08:55 | disposition home or self-care (01) ==
LOC: HO.LAB 08:54
PROVIDERS: PCP Family Medicine; Visit Provider Family Medicine
DX: R09.89 Other specified symptoms and signs involving the circulatory and respiratory systems (principal)
CPT/HCPCS: 0241U; 99212

== ENCOUNTER 2024-05-19 08:54 | Outpatient (AMB) | payer MEDICARE, SELFPAY ==
--- NOTE | 2024-05-19 08:58 | MHC.PC.OV ---
Vital Signs 05/19/24 09:01 Height 6 ft Weight 174 lb 6 oz BMI 23.6 BP 128/74 Blood Pressure Location Lt brachial Position Sitting Respiration 14 Pulse 80 Pulse Source Pulse Oximeter Temp 98.6 F Temp Source Temporal Artery Scan Pulse Oximetry (%) 95 Oxygen Delivery Method Room Air Intake Visit Reasons: f/u hypertension, chronic conditions Intake Note: f/u HTN Celery Wrapper Required: Yes Celery Wrapper Language: Italian Celery Wrapper Name: pt refused Allergies gabapentin Allergy (Severe, Verified 05/19/24 08:59) Fainting influenza virus vacc trivalent, who Allergy (Intermediate, Verified 05/19/24 08:59) Vomiting, rash Medication List - Last Reconciled 05/19/24 by Bartolome Goncalves MD acetaminophen ER 650 mg PO TID PRN 90 days albuterol sulfate 90 mcg/actuation 2 puffs inhalation Q4-6H PRN 30 days aspirin 81 mg PO DAILY 90 days atorvastatin 10 mg PO DAILY 90 days clonidine HCl 0.05 mg (1/2 x 0.1 mg) PO DAILY PRN 30 days diclofenac sodium 1% 2 grams topical QID 30 days diclofenac sodium 1% 4 grams topical QID 14 days ibuprofen 600 mg PO TID 14 days losartan-hydrochlorothiazide 100-25 mg 1 tab PO DAILY 90 days prgyozvd-qgw-SR-lycopen-lutein 0.4 mg-300 mcg- 250 mcg (Centrum Silver) 1 tab PO DAILY 90 days omega-3 fatty acids-fish oil 340-1,000 mg 1 cap PO DAILY 90 days omeprazole 20 mg PO DAILY 90 days tamsulosin 0.4 mg PO DAILY 90 days topiramate 50 mg PO DAILY 90 days vit C,I-Rl-iwday-lutein-zeaxan 250-90-40-1 mg (PreserVision AREDS-2) 1 cap PO DAILY 90 days Tobacco use date assessed: 01/28/24 Dental Screening Dental Screen Date: 10/04/23 HPI f/u hypertension, chronic conditions HPI Details 73 y/o male presents to f/u hypertension, chronic conditions. Blood pressure today 128/74, 80p. He is on losartan-HCTZ 100-25mg daily. They note he has been coughing a lot. [facility] Medical History Melanoma Surgical History History of eye surgery History of hernia surgery History of lung surgery History of surgery Social History Housing: House Alcohol intake: never Patient Tobacco Use Status: Never used Tobacco e-Cigarette/Vaping Use: Never Used Second Hand Smoke Exposure: No service: No Current occupational status: retired Cognitive needs: Yes (walker/cane) Hearing needs: Yes (hear aide) Vision needs: Yes (glasses) Questionnaire Thrive Questionnaire Date Thrive assessed: 05/12/24 I am a: Patient What is your living situation today?: I have a steady place to live Within the past 12 months, did the food you bought not last and you didn't have the money to get more?: Never true Within the past 12 months, did you worry whether your food would run out before you got money to buy more?: Never true Do you have trouble paying for medicines?: No Do you have trouble getting transportation to medical appointments?: Yes Do you have trouble paying your heating and electricity bill?: No Do you have trouble taking care of your child, family member or friend?: No Do you have trouble with day-to-day activities such as bathing, preparing meals, shopping, managing finances, etc.?: Yes Are you currently unemployed and looking for a job?: No Are you interested in more education?: No Please select the resources that you would like help with: None Currently or been in a relationship where the following occur: No concerns reported THRIVE Score: 1 AUDIT C Alcohol Use Questionnaire (AUDIT-C) 1. How often do you have a drink containing alcohol?: Never 3. How often do you have six or more drinks on one occasion?: Never Total Score: 0 SILVIA-7 AMB Questionnaire SILVIA-7 Date SILVIA - 7 assessed: 10/04/23 Feeling nervous, anxious, or on edge: 1 = Several days Not being able to stop or control worryin = Several days Worrying too much about different things: 2 = More than half the days Trouble relaxin = Nearly every day Being so restless that it is hard to sit still: 1 = Several days Becoming easily annoyed or irritable: 1 = Several days Feeling afraid as if something awful might happen: 1 = Several days Total SILVIA-7 score (0-4 normal; 5-9 mild; 10-14 moderate; 15-21 severe): 10 Source: Developed by Drs. John Munoz, Amelie Mendez, Kareem Billings and colleagues, with an educational kinsey from [employer]. Review of Systems Const Denies chills, Denies fatigue, Denies fever(s), Denies headache(s) and Denies weakness ENT Denies dizziness and Denies headache(s) Card Denies chest pain, Denies lightheadedness, Denies dyspnea and Denies other (Palpitations) Resp Denies cough, Denies dyspnea, Denies wheezing and Denies other ( shortness of breath) Musc Denies numbness and Denies tingling Neuro Denies dizziness, Denies headache(s), Denies numbness, Denies tingling, Denies paresthesias and Denies weakness Psych Denies anxiety and Denies depression Endo Denies fatigue Aller/Immun Denies wheezing Physical exam (Primary Care) Vital Signs: Last Vital Signs Temp 98.6 F 05/19/24 09:01 Pulse 80 05/19/24 09:01 Resp 14 05/19/24 09:01 BP 128/74 05/19/24 09:01 Pulse Ox 95 05/19/24 09:01 Oxygen Delivery Method Room Air 05/19/24 09:01 BMI result Body Mass Index 23.6 Tobacco/Smoking Status: Tobacco use Status Tobacco use date assessed 01/28/24 05/19/24 09:04 Patient Tobacco Use Status Never used Tobacco 05/19/24 09:04 e-Cigarette/Vaping Use Never Used 05/19/24 09:04 Thrive Assessment: Date of Thrive Assessment Date Thrive assessed 05/12/24 05/19/24 09:04 Currently or been in a relationship where the following occur: No concerns reported Const General: no acute distress and well developed Nutritional Appearance: well nourished Orientation/consciousness: patient oriented x3 HENMT Head: Yes normocephalic and Yes atraumatic Eyes General: appearance normal, both eyes and all related structures Pupils: Equal, round and reactive pupils present EOM: EOMs intact bilaterally Resp Effort & Inspection: normal respiratory effort Auscultation: clear to auscultation bilaterally Cardio Rate: regular rate Rhythm: regular rhythm Heart sounds: S1 normal heart sound present, S2 normal heart sound present, no gallops, no murmurs and no rubs Neuro General: patient oriented x3 and gait normal Cranial nerves: Yes Equal, round and reactive pupils present Psych Affect: normal affect Coding Level of Care Code Est Pt Level 3 (01500) Diagnoses Hypertension I10 Cough R05.9 Assessment & Plan Assessment & Plan (1) Hypertension: Code(s): I10 - Essential (primary) hypertension Category: Medical Plan: Blood?pressure?is?controlled.??Goal?is?less?than?140/90 Continue?current?medication (2) Cough: Code(s): R05.9 - Cough, unspecified Category: Medical Plan: Patient?has?had?productive?cough?for?about?a?week?and?history?of?COPD Checking?nasal?swab?for?COVID/flu/RSV Also?giving?him?a?script?for?a?Z-Javi?due?to?COPD.??Offered?script?for?prednisone?but?patient?declines?this.??He?will?continue?using?his?inhaled?medications. Call?or?return?to?office?if?worsening?or?not?improving Orders: Orders Complete Blood Count Auto Diff Today Z00.00 - Encounter for general adult medical examination without abnormal findings Prostate Specific Antigen Scr Today Z12.5 - Encounter for screening for malignant neoplasm of prostate Microalbumin, Random (w Creat) Today I10 - Essential (primary) hypertension Lipid Panel Today Z00.00 - Encounter for general adult medical examination without abnormal findings TSH reflex Free T4 Today Z00.00 - Encounter for general adult medical examination without abnormal findings Comprehensive [place]. Panel Fast Today Z00.00 - Encounter for general adult medical examination without abnormal findings UA and rflx microscopic Today Z00.00 - Encounter for general adult medical examination without abnormal findings
[2024-05-19 09:01] VITALS: BP 128/74; PULSE 80; RESP 14; TEMP 37; O2SAT 95; BMI 23.6
== END 2024-05-19 10:47 | disposition home or self-care (01) ==
PROVIDERS: PCP Family Medicine; Visit Provider Family Medicine
DX: I10 Essential (primary) hypertension (principal); R05.9 Cough, unspecified

== ENCOUNTER 2024-08-30 09:05 | Outpatient (AMB) | payer MEDICARE, SELFPAY ==
--- NOTE | 2024-08-30 09:06 | MHC.PC.OV ---
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 Wafer Abrading Machine Tender Name: pt refused Accompanied by: Daughter Followed by:: mary Allergies gabapentin Allergy (Severe, Verified 08/30/24 09:09) Fainting influenza virus vacc trivalent, who Allergy (Intermediate, Verified 08/30/24 09:09) Vomiting, rash Medication List - Last Reconciled 08/30/24 by Bartolome Gnocalves MD acetaminophen ER 650 mg PO TID PRN 90 days albuterol sulfate 90 mcg/actuation 2 puffs inhalation Q4-6H PRN 30 days atorvastatin 10 mg PO DAILY 90 days clonidine HCl 0.05 mg (1/2 x 0.1 mg) PO DAILY PRN 30 days diclofenac sodium 1% 2 grams topical QID 30 days diclofenac sodium 1% 4 grams topical QID 14 days ibuprofen 600 mg PO TID 14 days losartan-hydrochlorothiazide 100-25 mg 1 tab PO DAILY 90 days ypuxzlap-tal-GP-lycopen-lutein 0.4 mg-300 mcg- 250 mcg (Centrum Silver) 1 tab PO DAILY 90 days omeprazole 20 mg PO DAILY 90 days simethicone (Gas Relief 80 (simethicone)) 80 mg PO BID-TID 30 days tamsulosin 0.4 mg PO DAILY 90 days topiramate 50 mg PO DAILY 90 days Tobacco use date assessed: 08/30/24 Fall risk assessment: No Falls in past year Last assessed Fall Risk: 08/30/24 Dental Screening Dental Screen Date: 08/30/24 Did you have a dental visit in the last 12 months?: Yes Did you have a dental problem in the last 6 months where you did not have access to dental care?: No Was dental information given to patient?: No HPI Annual Physical HPI Details 73 y/o male presents for a CPE with f/u labs and health maintenance. No recent labs to review. He is on artovastatin 10mg daily. Blood pressure today 130/70, 73p. He is on losartan-hydrochlorothiazide 100-25mg daily. Has never had a colonoscopy or a cologuard test. Reports ongoing bloating while eating, with occasional GERD. Reports low back pain which they describe as kidney pain . Denies dysuria. Denies fevers/chills. They deny any pain today but reported symptoms 2 days ago which they describe as severe. Was on aspirin Started at ED but had stopped this due to easy bruising. Was started when he had went to [facility] ED for chest pain. 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 Eats a healthy diet. He keeps himself active daily. HPI Comments History of Present Illness Details Documentation assistance for Bartolome Goncalves MD, was provided by Aneesh Dee,? Cooker Chip on 08/30/2024 at 9:18 AM EST. I, Dr. Goncalves, have read, observed, and verified documentation. ?? [facility] Medical History Melanoma Surgical History History of eye surgery History of hernia surgery History of lung surgery History of surgery Social History Housing: House Alcohol intake: never Patient Tobacco Use Status: Never used Tobacco e-Cigarette/Vaping Use: Never Used Second Hand Smoke Exposure: No service: No Current occupational status: retired Cognitive needs: Yes (walker/cane) Hearing needs: Yes (hear aide) Vision needs: Yes (glasses) Questionnaire PHQ-9 Over the last 2 weeks, how often have you been bothered by any of the following problems? 44179 - PHQ-9 Billing: Patient declined-do not bill Source: Developed by Drs. John Munoz, Amelie Mendez, Kareem Billings and colleagues, with an educational kinsey from [employer]. Thrive Questionnaire Date Thrive assessed: 05/12/24 SILVIA-7 AMB Questionnaire SILVIA-7 Date SILVIA - 7 assessed: 08/30/24 Source: Developed by Drs. John Munoz, Amelie Mendez, Kareem Billings and colleagues, with an educational kinsey from [employer]. Review of Systems Const Denies chills, Denies fatigue, Denies fever(s), Denies headache(s) and Denies weakness Eyes Denies change in vision ENT Denies dizziness, Denies headache(s), Denies hearing loss, Denies nasal congestion, Denies sinus pain, Denies sinus pressure and Denies sore throat Card Denies chest pain, Denies lightheadedness, Denies dyspnea and Denies other (palpitations) Resp Denies cough, Denies dyspnea and Denies wheezing GI Denies abdominal pain, Denies melena, Denies hematochezia, Denies change in bowel habits, Denies dyspepsia and Denies nausea Denies hematuria and Denies dysuria Musc Denies abnormal gait, Denies myalgias, Denies arthralgias, Denies numbness and Denies tingling Skin/Breast Denies rash, Denies unusual bruising and Denies wounds Neuro Denies abnormal gait, Denies dizziness, Denies headache(s), Denies memory loss, Denies numbness, Denies Sensory deficit (Neuro), Denies tingling and Denies weakness Psych Denies anxiety, Denies depression and Denies memory loss Endo Denies cold intolerance, Denies fatigue, Denies heat intolerance, Denies polydipsia and Denies polyuria Mario/Lymph Denies easy bleeding and Denies easy bruising Aller/Immun Denies wheezing Physical exam (Primary Care) Vital Signs: Last Vital Signs Temp 97.9 F 08/30/24 09:12 Pulse 73 08/30/24 09:12 Resp 14 08/30/24 09:12 BP 130/70 08/30/24 09:12 Pulse Ox 98 08/30/24 09:12 Oxygen Delivery Method Room Air 08/30/24 09:12 BMI result Body Mass Index 22.4 Tobacco/Smoking Status: Tobacco use Status Tobacco use date assessed 08/30/24 08/30/24 09:16 Patient Tobacco Use Status Never used Tobacco 08/30/24 09:07 e-Cigarette/Vaping Use Never Used 08/30/24 09:07 Thrive Assessment: Date of Thrive Assessment Date Thrive assessed 05/12/24 08/30/24 09:07 Const General: no acute distress, well developed, alert and awake Nutritional Appearance: well nourished Orientation/consciousness: patient oriented x3 HENMT Head: Yes normocephalic and Yes atraumatic Ears: hearing grossly normal bilaterally and TM's normal bilaterally General nose exam: Normal external nose present and Normal nares present Mouth: Normal oral and palatal mucosa present and moist mucous membranes Teeth and gingiva: dentition normal Throat: Yes posterior oropharynx normal Eyes General: appearance normal, both eyes and all related structures Pupils: Equal, round and reactive pupils present and Pupil accommodation reflex normal EOM: EOMs intact bilaterally Neck Neck: Yes normal visual inspection, Yes no lymphadenopathy and Yes trachea midline Thyroid: Thyroid normal Carotids: no bruits Lymphatic: no lymphadenopathy noted Chest Chest palpation & inspection: normal inspection of the chest Resp Effort & Inspection: normal respiratory effort Auscultation: clear to auscultation bilaterally Cardio Rate: regular rate Rhythm: regular rhythm Heart sounds: S1 normal heart sound present, S2 normal heart sound present, no gallops, no murmurs and no rubs Bruits: no abdominal aortic bruits and no carotid bruits GI Palpation (GI): No Abdominal aortic bruit present, Soft to palpation, nontender, No hepatosplenomegaly present and No Rebound tenderness present Auscultation: normal bowel sounds General: Yes no CVA tenderness Back/Spine/Pelvis Back: no CVA tenderness Cervical Spine: cervical ROM normal and No Cervical spine tenderness Thoracic/Lumbar Spine: thoraco-lumbar ROM normal, No pain with thoraco-lumbar ROM, No thoracic spinal tenderness and No lumbar spinal tenderness Skin Lesions: no lesions Rashes: no rashes Trauma: no lacerations or abrasions Wounds: no wounds Nails: normal Neuro General: patient oriented x3 Cranial nerves: Yes Equal, round and reactive pupils present Cognition (Neuro): normal cognition Gait exam (Neuro): Normal gait present Motor exam (neuro): 5/5 motor strength present throughout Sensory Exam: No Sensory deficit (Neuro) Deep tendon reflexes (DTR's): Right patellar reflex intensity grade: 2+ and Left patellar reflex intensity grade: 2+ Extrem General: Yes normal to inspection and No edema Psych Appearance: grossly normal Affect: normal affect Attitude: cooperative Thought process: Normal thought process present Coding Level of Care Code Est Pt Level 3 (29607) Est Pt Prev Care >65y(65670) Diagnoses Adult general medical exam Z00.00 Hypertension I10 Low back pain M54.50 Bloating R14.0 GERD (gastroesophageal reflux disease) K21.9 Hyperlipidemia E78.5 Screening for colon cancer Z12.11 Screening for prostate cancer Z12.5 Assessment & Plan Assessment & Plan (1) Adult general medical exam: Code(s): Z00.00 - Encounter for general adult medical examination without abnormal findings Category: Medical Plan: 73-year-old?male?presents?for?complete?physical?exam Encouraged?healthy?diet?with?active?lifestyle?and?plenty?of?exercise (2) Hypertension: Code(s): I10 - Essential (primary) hypertension Category: Medical Plan: Blood?pressure?is?controlled.??Goal?is?less?than?140/90 Continue?current?medication (3) Low back pain: Code(s): M54.50 - Low back pain, unspecified Category: Medical Plan: Patient?had?an?episode?of?low?back?pain?last?week.??This?has?already?essentially?resolved. Continue?using?heat Gentle?stretching (4) Bloating: Code(s): R14.0 - Abdominal distension (gaseous) Category: Medical Plan: Mild?bloating?and?some?reflux Will?give?him?a?script?for?omeprazole?and?simethicone He?will?let?know?this?persists (5) GERD (gastroesophageal reflux disease): Code(s): K21.9 - Gastro-esophageal reflux disease without esophagitis Category: Medical Plan: As?above (6) Hyperlipidemia: Code(s): E78.5 - Hyperlipidemia, unspecified Category: Medical Plan: Taking?atorvastatin Check?lipids (7) Screening for colon cancer: Code(s): Z12.11 - Encounter for screening for malignant neoplasm of colon Category: Medical Plan: Patient?has?never?had?a?colonoscopy?and?declines?these Agrees?to?Cologuard.??Ordered (8) Screening for prostate cancer: Code(s): Z12.5 - Encounter for screening for malignant neoplasm of prostate Category: Medical Plan: Due?for?PSA Ordered Patient?says?he?is?urinating?normally Orders: Orders AMB Cologuard Today Z12.11 - Encounter for screening for malignant neoplasm of colon, Z12.12 - Encounter for screening for malignant neoplasm of rectum Medications: New simethicone (Gas Relief 80 (simethicone)) 80 mg PO BID-TID 30 days 90 tabs 2RF Refilled omeprazole 20 mg PO DAILY 90 days 90 caps 3RF
[2024-08-30 09:12] VITALS: BP 130/70; PULSE 73; RESP 14; TEMP 36.6; O2SAT 98; BMI 22.4
--- OUTSIDE RECORDS SUMMARY | 2024-08-30 09:59 | XMS_ITS | Clinical Summary ---
Author Organization [employer] Address [address] [place] [address] [address] [place] [address] Care Team Providers Care Company Doctor Name Role Phone Unavailable Primary Care Provider Unavailabl e Allergies No known active allergies Medications albuterol 108 (90 Base) MCG/ACT inhaler INHALE 2 PUFFS EVERY 4 TO 6 HOURS NEEDED FOR SHORTNESS OF BREATH OR WHEEZING 2 Active ascorbic acid (Vitamin C) 500 MG tablet Take 1 tablet by mouth in the morning. 9 Active Aspirin Low Dose 81 MG EC tablet Take 81 mg by mouth in the morning. 3 Active atorvastatin (Lipitor) 10 MG tablet Take 10 mg by mouth in the morning. 3 Active celecoxib (CeleBREX) 200 MG capsule TAKE 1 CAPSULE BY MOUTH TWICE A DAY NEEDED FOR PAIN. TAKE WITH FOOD FOR 2 WEEKS. 2 Active losartan-hydroC HLOROthiazide (Hyzaar) 50-12.5 MG tablet Take 1 tablet by mouth in the morning. 3 Active omeprazole (PriLOSEC) [address] capsule Take 20 mg by mouth in the morning. 3 Active SUMAtriptan (Imitrex) 50 MG tablet TAKE 1 TABLETS BY MOUTH FOR SEVERE MIGRAINE HEADACHE, THEN REPEAT DOSE IN 2 HOURS IF NEEDED 0 Active tamsulosin (Flomax) 0.4 MG 24 hr capsule Take 0.4 mg by mouth in the morning. 3 Active Social History Tobacco Use Types Packs/Day Years Used Date Smoking Tobacco: Never Smokeless Tobacco: Never Tobacco Cessation:Counseling Given: Not Answered Comments Unknown Sex and Gender Information Value Date Recorded Sex Assigned at Female 10/27/2022 6:11 PM EDT Legal Sex Male 9:34 AM EDT Gender Identity Female 10/27/2022 6:11 PM EDT Sexual Orientation Straight 10/27/2022 6: 11 PM EDT Last Filed Vital Signs Vital Sign Reading Time Taken Comments Blood Pressure 154/85 10/28/2022 10:16 AM EDT Pulse 71 10/28/2022 10:16 AM EDT Temperature - - Respiratory Rate - - Oxygen Saturation - - Inhaled Oxygen Concentration - - Weight - - Height - - Body Mass Index - - Plan of Treatment Health Maintenance Due Date Last Done Comments CT Colonography 1951 Colonoscopy 1951 Colorectal Cancer Screening 1951 Dental X-Ray: Bitewings 1951 Depression Screening 1951 FIT DNA/Cologuard 1951 FIT 1951 FOBT 1951 Lipid Panel 1951 SDOH Screening 1951 Sigmoidoscopy 1951 Alcohol/Substance Use Screening 1963 Hepatitis C Screening 08/31/1969 DTaP/Tdap/Td Vaccines (1 - Tdap) 08/31/1970 Pneumococcal Vaccine: 50+ Ye ars (1 of 2 - PCV) 08/31/1970 Mammogram 1991 Zoster Vaccines (1 of 2) 08/31/2001 RSV Patients and Pa tients Aged 60 years or older (1 - Risk 60-74 years 1-dose series) 2011 Dental Oral Exam 05/01/2023 10/28/2022 Dental Prophylaxis 05/01/2023 10/28/2022 Tobacco Screening 10/29/2023 10/28/2022 COVID-19 Vaccine (1 - 2023-2 5 season) 2024 Influenza Vaccine (#1) 2024 Dental X-Ray: Full Mouth 10/29/2025 10/28/2022 HIB Vaccines Aged Out No longer eligi ble based on patient's age to complete this topic HPV Vaccines Aged Out No longer eligi ble based on patient's age to complete this topic Hepatitis A Vaccines Aged Out No long er eligible based on patient's age to complete this topic Hepatitis B Vaccines Aged Out No long er eligible based on patient's age to complete this topic IPV Vaccines Aged Out No longer eligi ble based on patient's age to complete this topic Meningococcal Vaccine Aged Out No bridger luz eligible based on patient's age to complete this topic RSV under 20 months Aged Out No longe r eligible based on patient's age to complete this topic Rotavirus Vaccines Aged Out No longer eligible based on patient's age to complete this topic Procedures Procedure Name Priority Date/Time Associated Diagnosis Comments PROPHYLAXIS - ADULT Routine 10/28/2022 1 0:00 AM EDT Encounter for dental examination PANORAMIC RADIOGRAPHIC IMAGE Routine 10/28/2022 10:00 AM EDT Encounter for dental examination COMPREHENSIVE ORAL EVALUATION - NEW OR ESTABLISHED PATIENT Routine 10/28/2022 10:00 AM EDT from Last 3 Months or Most Recently Relevant to Health Maintenance Insurance * Guarantor: [employer] Account Type Relation to Patient Date of Phone Billing Address Personal/Family Self [address] [place]
--- OUTSIDE RECORDS SUMMARY | 2024-08-30 09:59 | XMS_ITS | Clinical Summary ---
Author Organization [facility] Address [address] [place] [address] Care Team Providers Care Project Manager Finance Name Role Phone Eryn Anegl PA-C Primary Care Provider [phone] Source Comments PLEASE NOTE, if this patient is a minor, it may be UNLAWFUL to discuss sensitive information that is contained in these records (such as FAMILY PLANNING, MENTAL HEALTH or SUBSTANCE ABUSE) with the minor patient's parent or other person without the patient's specific authorization.[facility] Allergies No known active allergies Medications verapamil (CALAN-SR) 180 mg CR tablet TAKE 1 CAP BY MOUTH ONCE DAILY. 5 05/06/20 16 Active atorvastatin (LIPITOR) 10 mg tabletIndications: Mixed hyperlipidemia Take 1 Tab by mouth nightly at bedtime 30 Tab 5 09/29/19 [address] tabletIndications: Dizziness Take 1 Tab by mouth once daily 30 Tab 5 03/05/20 17 Active traMADol (ULTRAM) 50 mg tablet Take 1 Tab by mouth 2 (two) times daily 60 Tab 03/08/20 17 Active lisinopril-hydroch lorothiazide (PRINZIDE,ZESTORET IC) 20-12.5 mg per tabletIndications: Essential hypertension TAKE 1 TABLET BY MOUTH EVERY DAY 30 Tab 5 04/12/20 17 Active atorvastatin (LIPITOR) 10 mg tabletIndications: Mixed hyperlipidemia TAKE 1 TABLET BY MOUTH NIGHTLY AT BEDTIME. 30 Tab 5 04/12/20 17 Active verapamil (CALAN-SR) 180 mg CR tablet TAKE ONE CAPSULE BY MOUTH EVERY DAY 30 Tab 5 04/12/20 17 Active gabapentin (NEURONTIN) 600 mg tablet Take 1 Tab by mouth 2 (two) times daily 60 Tab 5 04/13/20 17 Active celecoxib (CELEBREX) 200 mg capsuleIndications :Lumbar degenerative disc disease,Complete tear of left rotator cuff Take 1 Cap by mouth 2 (two) times daily Discontinue all NSAIDS 60 Cap 4 05/25/20 17 Active meloxicam (MOBIC) 7.5 mg tablet Take 1 Tab by mouth 2 (two) times daily 60 Tab 5 05/27/20 17 Active Active Problems Problem Noted Date Diagnosed Date Rotator cuff tear on MRI : Large full-thickness supraspinatus tear 03/16/2017 Overview (03/16/2017): Result type: MRI Joint Ext Upper W/O Contrast Left Result date: March 15, 2017 18:50 Result status: Auth (Verified) Result title: MRI Joint Ext Upper W/O Contrast Left Performed by: Adeel Serra MD on March 16, 2017 10:39 Verified by: Adeel Serra MD on March 16, 2017 10:39 Encounter info: [id number], [facility] [place], One Time OP, 03/15/2017 - * Final Report * Reason For Exam ACUTE LT SHOULDER PAIN RESULT: MRI Joint Ext Upper W/O Contrast Left MR Shoulder Indication: Pain Technique: Multiplanar multisequence MRI of the shoulder performed without contrast Findings: AC joint: Mild degenerative change at the AC joint with mild capsular hypertrophy and spurring. High riding humeral head. Narrowed acromiohumeral interval. Supraspinatus tendon: Full-thickness tear involving all of the supraspinatus tendon fibers. Torn fibers retracted approximately 5 to 5.5 cm. Fibers are retracted to the level of the glenoid labrum. The tear measures approximately 4 to 4.5 cm AP. Minimal fatty atrophy of the supraspinatus muscle belly. Infraspinatus tendon:Infraspinatus tendinopathy. Mild edema at the myotendinous junction of the infraspinatus. Teres minor tendon: Intact Subscapularis tendon: Intact Long head of the biceps tendon: Intact Glenoid labrum: Grossly intact on nonarthrogram MR. Impression: Large full-thickness supraspinatus tear Low-grade myotendinous injury/strain with small amount of edema at the myotendinous junction of the infraspinatus. WSN: [id number] Signature Line Dictated By: Maryse MD, Adeel P Dictated Date/Time: 03/16/17 10:39 a Reviewed By: Adeel Serra MD Signed By: Adeel Serra MD Signed Date/Time: 03/16/17 10:39 am Transcribed By: MARGE Transcribed Date/Time: 03/16/17 10:39 am MRI Joint Ext Upper W/O Contrast Left This document has an image History of PUD (peptic ulcer disease) 08/30/2015 Lumbar degenerative disc disease on x-ray 2014 0 09/28/2014 Overview (09/28/2014): Result type: Lumbar Spine 2 or 3 Views Result date: 05 March 2014 13:46 Result status: Auth (Verified) Result title: Lumbar Spine 2 or 3 Views Performed by: Naveed Correa MD on 05 March 2014 13:59 Verified by: Naveed Correa MD on 05 March 2014 13:59 Encounter info: [id number], [facility] [place], One Time OP, 03/05/2014 - 03/05/2014 * Final Report * Reason For Exam arthritis RESULT: Lumbar Spine 2 or 3 Views Lumbar spine 3 views. History: Pain. Normal alignment. Minimal multilevel osteophytic spurring apposing endplates. No spondylolysis or spondylolisthesis. Disc spaces sharply defined. No fracture. No destructive bone lesion. Sacroiliac joints normal. Impression: Mild degenerative changes as above. No acute abnormality. Signature Line Dictated By: Naveed Correa MD Dictated Date/Time: 03/05/14 1:59 pm Reviewed By: Naveed Correa MD Signed By: Naveed Correa MD Signed Date/Time: 03/05/14 1:59 pm Transcribed By: MARGE Transcribed Date/Time: 03/05/14 1:59 pm Lumbar Spine 2 or 3 Views This document has an image Cervical spine degeneration on CT 2013 5 Overview (09/28/2014): Result type: CT Cervical Spine W/O Contrast Result date: 15 October 2013 11:36 Result status: Auth (Verified) Result title: CT Cervical Spine W/O Contrast Performed by: Raleigh Villasenor MD on 15 October 2013 11:46 Verified by: Raleigh Villasenor MD on 15 October 2013 11:46 Encounter info: [id number], [facility], Disch ES, 10/15/2013 - 10/15/2013 * Final Report * Reason For Exam Neck Pain;Other: RESULT: CT Cervical Spine W/O Contrast CT of the head and cervical spine dated October 15, 2013. History: Pain secondary to trauma. Findings: CT imaging of the head was performed with 5 mm axial sections from the foramen magnum to the vertex. No intravenous contrast material was utilized. Examination of the posterior fossa shows a normal sized midline fourth ventricle. No mass or hemorrhage is identified. Supratentorially, the lateral and third ventricles are normal in size, contour and position. No mass or hemorrhage is identified. The sapp-white matter differentiation is well preserved. Visualized osseous structures and paranasal sinuses show mucoperiosteal thickening in the right maxillary sinus. There is an air-fluid level here and this may represent sinusitis with an acute component. Impression: No evidence of acute intracranial abnormality. Findings are consistent with right-sided maxillary sinusitis with acute and subacute components. CT of the cervical spine was performed with multislice acquisition from the base of the brain through the apices of the lungs with axial, coronal, and sagittal reconstruction. The vertebral bodies are normal in height and alignment. There is loss of intervertebral disc space height, subchondral sclerosis and osteophyte formation at C5-C6 and C6-C7. The facet joints align normally. No perched or locked facets are identified the craniocervical junction is normal. Prevertebral soft tissues are within normal limits. No epidural hematoma is appreciated. As visualized, the apices of the lungs are unremarkable. Impression: Degenerative changes. No evidence of acute osseous abnormality Thank you for allowing me to participate in the care of this patient. Signature Line Dictated By: Raleigh Villasenor MD Dictated Date/Time: 10/15/13 11:46 a Reviewed By: Raleigh Villasenor MD Signed By: Raleigh Villasenor MD Signed Date/Time: 10/15/13 11:46 am Transcribed By: MARGE Transcribed Date/Time: 10/15/13 11:46 am H/O CT scan of brain 09/2013: normal 09/28/2014 Overview (09/28/2014): Result type: CT Head/Brain W/O Contrast Result date: 15 October 2013 11:36 Result status: Auth (Verified) Result title: CT Head/Brain W/O Contrast Performed by: Raleigh Villasenor MD on 15 October 2013 11:46 Verified by: Raleigh Villasenor MD on 15 October 2013 11:46 Encounter info: [id number], [facility], 10/15/2013 - 10/15/2013 * Final Report * Reason For Exam Trauma RESULT: CT Head/Brain W/O Contrast CT of the head and cervical spine dated October 15, 2013. History: Pain secondary to trauma. Findings: CT imaging of the head was performed with 5 mm axial sections from the foramen magnum to the vertex. No intravenous contrast material was utilized. Examination of the posterior fossa shows a normal sized midline fourth ventricle. No mass or hemorrhage is identified. Supratentorially, the lateral and third ventricles are normal in size, contour and position. No mass or hemorrhage is identified. The sapp-white matter differentiation is well preserved. Visualized osseous structures and paranasal sinuses show mucoperiosteal thickening in the right maxillary sinus. There is an air-fluid level here and this may represent sinusitis with an acute component. Impression: No evidence of acute intracranial abnormality. Findings are consistent with right-sided maxillary sinusitis with acute and subacute components. CT of the cervical spine was performed with multislice acquisition from the base of the brain through the apices of the lungs with axial, coronal, and sagittal reconstruction. The vertebral bodies are normal in height and alignment. There is loss of intervertebral disc space height, subchondral sclerosis and osteophyte formation at C5-C6 and C6-C7. The facet joints align normally. No perched or locked facets are identified the craniocervical junction is normal. Prevertebral soft tissues are within normal limits. No epidural hematoma is appreciated. As visualized, the apices of the lungs are unremarkable. Impression: Degenerative changes. No evidence of acute osseous abnormality Thank you for allowing me to participate in the care of this patient. Signature Line Dictated By: Raleigh Villasenor MD Dictated Date/Time: 10/15/13 11:46 a Reviewed By: Raleigh Villasenor MD Signed By: Raleigh Villasenor MD Signed Date/Time: 10/15/13 11:46 am Transcribed By: MARGE Transcribed Date/Time: 10/15/13 11:[address] Head/Brain W/O Contrast This document has an image Normal cardiac stress MIBI 08/200909/28/2014 Overview (09/28/2014): Result type: NM Myocard Perf SPECT Multi Result date: 03 September 2009 15:50 Result status: Auth (Verified) Result title: NM Myocard Perf SPECT Multi Performed by: Gonzalo Apple MD on 03 September 2009 16:06 Verified by: Bartolome Stratton MD on 03 September 2009 17:02 Encounter info: [id number], [facility] [place], One Time OP, 09/03/2009 - 09/03/2009 * Final Report * Reason For Exam chest pain RESULT: NM Myocard Perf SPECT Multi Exam: NM myocardial SPECT, rest and Persantine, with wall motion study with ejection fraction History: 59 year old male with no known coronary artery disease. Height: 72 inches. Weight: 150 pounds. Clinical indication is: Chest pain. Cardiac medications include: Metoprolol, lisinopril, aspirin. Cardiac risk factors include hypertension and hyperlipidemia. Previous cardiac history includes: None. Technique: The patient was infused with 40 mg of Persantine IV over 4 minutes according to protocol and performed low level exercise. Radiotracer was injected at 6 minutes. Symptoms recorded were chest pain. Stress lab reports nondiagnostic EKG changes. Patient received Aminophylline 100 mg IV for reversal of Persantine effect. Myocardial perfusion imaging was performed at rest following the injection of 12.9 mCi of Tc99m SESTAMIBI. At peak pharmacologic effect, the patient was injected with 38.4 mCi of Tc99m SESTAMIBI. Gating post-stress tomographic imaging was performed at least 30 minutes following pharamacologic stress. One day protocol. Patient was imaged supine. Comparison studies: None Findings: The overall quality of the imaging is technically satisfactory. Left ventricular cavity size is normal. SPECT multiplanar images demonstrate no fixed or reversible defects. Gated SPECT imaging reveals normal left ventricular myocardial wall motion and thickening. The left ventricular ejection fraction is calculated at 60 %. Impression: 1. Normal myocardial perfusion imaging with Persantine. 2. Overall left ventricular systolic function was normal without regional wall motion abnormalities. 3. Stress lab results reported separately. Signature Line Dictated By: Gonzalo Apple MD Dictated Date/Time: 09/03/09 4:06 pm Reviewed By: Bartolome Stratton MD Signed By: Bartolome Stratton MD Signed Date/Time: 09/03/09 5:02 pm Transcribed By: MARGE Transcribed Date/Time: 09/03/09 4:06 pm This document has an image COPD (chronic obstructive pulmonary disease) on CXR 200909/28/2014 Essential hypertension, benign 09/28/2014 Tobacco use 09/28/2014 Mixed hyperlipidemia 09/28/2014 Social History Tobacco Use Types Packs/Day Years Used Date Smoking Tobacco: Light Smoker Cigarettes Smokeless Tobacco: Current Tobacco Cessation:Ready to Q uit: No; Counseling Given: Yes Alcohol Use Standard Drinks/Week Comments No 0 (1 standard drink = 0.6 oz pur e alcohol) Social Connections Answer Date Recorded Social Connections and Isolation 0 02/19/2019 Financial Resource Strain Answer Date R ecorded Financial Resource Strain 0 2018 Stress Answer Date Recorded Stress 0 02/19/2019 Physical Activity Answer Date Recorded Physical Activity 0 02/19/2019 Food Insecurity Answer Date Recorded Food 0 02/19/2019 Transportation Needs Answer Date Record ed Transportation 0 02/19/2019 Housing Stability Answer Date Recorded Housing 0 02/19/2019 Safety and Environment Answer Date Michele rded Safety 0 02/19/2019 Utilities Answer Date Recorded Utilities 0 02/19/2019 Employment Answer Date Recorded Employment 0 02/19/2019 Sex and Gender Information Value Date Recorded Sex Assigned at Male 05/25/2017 8:16 AM PST Legal Sex Male 11:24 AM PDT Gender Identity Male 05/25/2017 8:16 AM PST Sexual Orientation Straight 05/25/2017 8: 16 AM PST Last Filed Vital Signs Vital Sign Reading Time Taken Comments Blood Pressure 126/80 05/25/2017 10:16 AM EST Pulse 93 05/25/2017 10:16 AM EST Temperature 36.8 ??C (98.3 ??F) 05/25/2017 10:[address] Respiratory Rate 16 05/25/2017 10:16 AM EST Oxygen Saturation 98% 05/25/2017 10:16 AM EST Inhaled Oxygen Concentration - - Weight 70.3 kg (155 lb) 05/25/2017 10:16 AM EST Height 174.8 cm (5' 8.8 ) 08/30/2015 1:10 PM EST Body Mass Index 23.02 08/30/2015 1:10 PM EST Plan of Treatment Not on file Insurance [place] Care Teams Project Manager Finance Relationship Specialty Start Date End Date Eryn Angel PA-C [address] [place] [phone] PCP - General Internal Medicine 09/28/14
== END 2024-08-30 09:41 | disposition home or self-care (01) ==
PROVIDERS: PCP Family Medicine; Visit Provider Family Medicine
DX: Z00.00 Encounter for general adult medical examination without abnormal findings (principal); I10 Essential (primary) hypertension; M54.50 Low back pain, unspecified; R14.0 Abdominal distension (gaseous); K21.9 Gastro-esophageal reflux disease without esophagitis; E78.5 Hyperlipidemia, unspecified; Z12.11 Encounter for screening for malignant neoplasm of colon; Z12.5 Encounter for screening for malignant neoplasm of prostate

== ENCOUNTER → 2024-08-30 09:05 | Outpatient (BNVA) | payer MEDICARE, SELFPAY | PROVIDERS: PCP Family Medicine; Visit Provider Family Medicine | DX: Z00.00 Encounter for general adult medical examination without abnormal findings (principal); I10 Essential (primary) hypertension; M54.50 Low back pain, unspecified; R14.0 Abdominal distension (gaseous); K21.9 Gastro-esophageal reflux disease without esophagitis; E78.5 Hyperlipidemia, unspecified; Z79.899 Other long term (current) drug therapy | CPT/HCPCS: 99212; 99397 ==

== ENCOUNTER 2024-08-30 09:47 | Outpatient (REF) | payer MEDICARE, SELFPAY ==
--- OUTSIDE RECORDS SUMMARY | 2024-08-30 11:13 | XMS_ITS | Clinical Summary ---
Author Organization [facility] Address [address] [place] [address] Care Team Providers Care Cardiac Cath Rn Name Role Phone Eryn Angel PA-C Primary Care Provider [phone] Source Comments PLEASE NOTE, if this patient [...] on March 16, 2017 10:39 Encounter info: [id number], [facility] [place], One Time OP, 03/15/2017 - * Final [...] the myotendinous junction of the infraspinatus. WSN: [id number] Signature Line Dictated By: Maryse MD, Adeel [...] on 05 March 2014 13:59 Encounter info: [id number], [facility] [place], One Time OP, 03/05/2014 - 03/05/2014 * [...] acute abnormality. Signature Line Dictated By: Naveed Corrae MD Dictated Date/Time: 03/05/14 1:59 pm Reviewed [...] on 15 October 2013 11:46 Encounter info: [id number], [facility], Disch [facility], 10/15/2013 - 10/15/2013 * [...] on 15 October 2013 11:46 Encounter info: [id number], [facility], 10/15/2013 - 10/15/2013 * Final [...] on 03 September 2009 17:02 Encounter info: [id number], [facility], One Time OP, 09/03/2009 - 09/03/2009 * [...] Plan of Treatment Not on file Insurance [place] Care Teams Cardiac Cath Rn Relationship Specialty Start Date End Date Eryn Angel PA-C [address] [place] [phone] PCP - General Internal Medicine 09/28/14
--- OUTSIDE RECORDS SUMMARY | 2024-08-30 11:13 | XMS_ITS | Clinical Summary ---
Author Organization [employer] Address [address] [place] [address] [address] [place] [address] Care Team Providers Care Concaving Machine Operator Name Role Phone Unavailable Primary Care Provider [...] topic Meningococcal Vaccine Aged Out No bridger lzu eligible based on patient's age to complete [...] of Phone Billing Address Personal/Family Self [phone] [place]
[2024-08-30 11:36] LABS: Appearance Urine Clear; Color Urine Yellow; Glucose Urine UA Negative (Negative); Leukocyte Esterase Urine Negative (Negative); Nitrite Urine Negative (Negative); PH 5.5 (5.0-9.0); Specific Gravity - Urine 1.015 (1.005-1.025); Urine Blood Negative (Negative); Urine Ketones Negative (Negative); Urine Protein Negative (Neg-Trace)
[2024-08-30 11:57] LABS: MANUAL DIFF FLAG NO
[2024-08-30 12:00] LABS: Basophils Percent Auto 0.4 % (0-2); Eosinophils Absolute Auto 0.2 X10*3/uL (0.0-0.4); Eosinophils Percent Auto 2.6 % (0-4); Hematocrit 46.7 % (42.0-52.0); Hemoglobin 15.9 g/dl (14.0-18.0); Imm Gran Abs Auto 0.02 X10*3/uL (0.00-0.03); Imm Gran Pct Auto 0.3 % (0.0-0.4); Lymphocytes Absolute Auto 1.7 X10*3/uL (1.2-4.9); Lymphocytes Percent Auto 22.8 % (20-40); Mean Corpuscular Volume 88.1 fL (80.0-98.0); Mean Platelet Volume 10.7 fL (9.4-12.4); Monocytes Absolute Auto 0.5 X10*3/uL (0.1-1.2); Monocytes Percent Auto 7.1 % (2-11); Neutrophils Absolute Auto 5.1 x10*3/uL (2.0-8.3); Neutrophils Percent Auto 66.8 % (45-73); Platelet Count 195 X10*3/uL (160-400); Red Cell Distribution Width 13.8 % (11.0-16.0); White Blood Count 7.6 X10*3/uL (4.8-10.8)
[2024-08-30 12:16] LABS: Microalbum/Creatinine Ratio Ur 7.5 ug/mg cr (<30)
[2024-08-30 12:57] LABS: Alanine Aminotransferase 20 U/L (0-40); Albumin Level 4.3 g/dL (3.5-5.0); Alkaline Phosphatase 67 U/L (39-117); Anion Gap 11 (12-20); Aspartate Amino Transferase 21 U/L (5-37); Bilirubin Total 0.6 mg/dL (0.0-1.0); Blood Urea Nitrogen 17 mg/dL (9-16); Calcium 9.4 mg/dL (8.4-10.2); Carbon Dioxide 28 mmol/L (22-29); Chloride 106 mmol/L (96-108); Cholesterol 194 mg/dL (<200); Estimated Glomerular Filt Rate > 60; Glucose Fasting 100 mg/dL (60-99); HDL Cholesterol 43 mg/dL (>40); LDL Cholesterol Calculated 128 mg/dL (<100); Potassium 4.1 mmol/L (3.3-5.1); Sodium 141 mmol/L (135-145); TSH reflex Free T4 1.21 uIU/mL (0.32-4.0); Total Protein 7.8 g/dL (6.5-8.0); Triglycerides 119 mg/dL (<150)
[2024-08-30 13:03] LABS: Prostate Specific Antigen Scr 3.83 ng/mL (<0.05-4.0)
== END 2024-08-30 09:48 | disposition home or self-care (01) ==
LOC: HO.WFDLDS 09:47
PROVIDERS: Visit Provider Family Medicine
DX: Z00.00 Encounter for general adult medical examination without abnormal findings (principal); I10 Essential (primary) hypertension; M54.50 Low back pain, unspecified; R14.0 Abdominal distension (gaseous); K21.9 Gastro-esophageal reflux disease without esophagitis; E78.5 Hyperlipidemia, unspecified; Z79.899 Other long term (current) drug therapy; Z12.5 Encounter for screening for malignant neoplasm of prostate
CPT/HCPCS: 36415; 80053; 80061; 81003; 82043; 82570; 84153; 84443; 85025; 99212; 99397

== ENCOUNTER 2024-10-03 09:03 | Outpatient (AMB) | payer MEDICARE, SELFPAY ==
--- NOTE | 2024-10-03 09:00 | A.OFFPC_ITS ---
Intake Visit Reasons: f/u CPE-labs via telemedicine Allergies gabapentin Allergy (Severe, Verified 10/03/24 09:00) Fainting influenza virus vacc trivalent, who Allergy (Intermediate, Verified 10/03/24 09:00) Vomiting, rash Medication List - Last Reconciled 10/03/24 by Bartolome Goncalves MD acetaminophen ER 650 mg PO TID PRN 90 days albuterol sulfate 90 mcg/actuation 2 puffs inhalation Q4-6H PRN 30 days atorvastatin 10 mg PO DAILY 90 days clonidine HCl 0.05 mg (1/2 x 0.1 mg) PO DAILY PRN 30 days diclofenac sodium 1% 2 grams topical QID 30 days diclofenac sodium 1% 4 grams topical QID 14 days ibuprofen 600 mg PO TID 14 days losartan-hydrochlorothiazide 100-25 mg 1 tab PO DAILY 90 days lxcocamq-vml-AK-lycopen-lutein 0.4 mg-300 mcg- 250 mcg (Centrum Silver) 1 tab PO DAILY 90 days omeprazole 20 mg PO DAILY 90 days simethicone (Gas Relief 80 (simethicone)) 80 mg PO BID-TID 30 days tamsulosin 0.4 mg PO DAILY 90 days topiramate 50 mg PO DAILY 90 days Tobacco use date assessed: 08/30/24 Dental Screening Dental Screen Date: 08/30/24 HPI f/u CPE-labs via telemedicine HPI Details 74 y/o male presents to f/u labs via tel emedicine. Labs drawn 08/30/24. Reviewed labs with pt. Fasting glucose 100. Triglycerides 119. TC 194. LDL 128. HDL 43. PSA 3.83. PFSH Medical History Melanoma Surgical History History of eye surgery History of hernia surgery History of lung surgery History of surgery Social History Housing: House Alcohol intake: never Patient Tobacco Use Status: Never used Tobacco e-Cigarette/Vaping Use: Never Used Second Hand Smoke Exposure: No service: No Current occupational status: retired Cognitive needs: Yes (walker/cane) Hearing needs: Yes (hear aide) Vision needs: Yes (glasses) Questionnaire Thrive Questionnaire Date Thrive assessed: 08/30/24 I am a: Patient What is your living situation today?: I have a steady place to live Within the past 12 months, did the food you bought not last and you didn't have the money to get more?: Never true Within the past 12 months, did you worry whether your food would run out before you got money to buy more?: Never true Do you have trouble paying for medicines?: No Do you have trouble getting transportation to medical appointments?: No Do you have trouble paying your heating and electricity bill?: No Do you have trouble taking care of your child, family member or friend?: No Do you have trouble with day-to-day activities such as bathing, preparing meals, shopping, managing finances, etc.?: Yes Are you currently unemployed and looking for a job?: No Are you interested in more education?: No Please select the resources that you would like help with: None Currently or been in a relationship where the following occur: No concerns reported THRIVE Score: 0 AUDIT C Alcohol Use Questionnaire (AUDIT-C) 3. How often do you have six or more drinks on one occasion?: Never Total Score: 0 SILVIA-7 AMB Questionnaire SILVIA-7 Date SILVIA - 7 assessed: 08/30/24 Source: Developed by Drs. John Munoz, Amelie Mendez, Kareem Billings and colleagues, with an educational kinsey from [employer]. Review of Systems Const Denies chills, Denies fatigue, Denies fever(s), Denies headache(s) and Denies weakness ENT Denies dizziness and Denies headache(s) Card Denies dyspnea Resp Denies cough, Denies dyspnea, Denies wheezing and Denies other (shortness of breath) Musc Denies numbness and Denies tingling Neuro Denies dizziness, Denies headache(s), Denies numbness, Denies tingling and Denies weakness Psych Denies anxiety and Denies depression Endo Denies fatigue Aller/Immun Denies wheezing Physical exam (Primary Care) Tobacco/Smoking Status: Tobacco use Status Tobacco use date assessed 08/30/24 10/03/24 09:02 Patient Tobacco Use Status Never used Tobacco 10/03/24 09:02 e-Cigarette/Vaping Use Never Used 10/03/24 09:02 Thrive Assessment: Date of Thrive Assessment Date Thrive assessed 08/30/24 10/03/24 09:02 Currently or been in a relationship where the following occur: No concerns reported Telehealth Telehealth Telehealth Platform: Telephone Location of provider rendering services: practice address Location of patient: address on file Patient Identification confirmed using: Name, : Yes Telehealth method: voice only Patient verbally consented to treatment: Yes Patient verbally consented to billing insurance company: Yes Patient informed of any privacy concerns related to visit: Yes Minutes spent on Phone/Video with Pt.: 10 Coding Level of Care Code Tele Est Pt Level 2 (57177) Diagnoses Hyperlipidemia E78.5 Screening for prostate cancer Z12.5 Elevated fasting glucose R73.01 Cluster headaches G44.009 Cervicalgia M54.2 Back pain M54.9 Assessment & Plan Assessment & Plan (1) Hyperlipidemia: Code(s): E78.5 - Hyperlipidemia, unspecified Category: Medical Plan: LDL?cholesterol?has?risen. Work?at?a?diet ?lower?in?saturated?fats?and?cholesterol.??Continue?atorvastatin?as?prescribed Will?recheck?lipids?at?a?subsequent?visit.??If?still?elevated?may?adjust?his?med ication. (2) Screening for prostate cancer: Code(s): Z12.5 - Encounter for screening for malignant neoplasm of prostate Category: Medical Plan: PSA?is?less?than?4. He?has?seen?[facility]?Urology?in?the?past?and?is?on?tamsulosin?for?BPH. Patient?has?no?new?symptoms?or?complaints Continue?tamsulosin Will?continue?to?follow?PSA?annually?or?sooner?if?symptoms?change (3) Elevated fasting glucose: Code(s): R73.01 - Impaired fasting glucose Category: Medical Plan: Mildly?elevated?fasting?blood?sugar?but?A1c?has?been?in?normal?range Will?continue?to?monitor (4) Cluster headaches: Code(s): G44.009 - Cluster headache syndrome, unspecified, not intractable Category: Medical Plan: Cluster?headaches?and?followed?by?Neurology.??He?has?an?upcoming?appointment?in? the?next?couple?of?days Also?has?complaints?of?neck?pain?which?may?be?triggering?some?of?his?headaches. Will?refer?him?to?physical?therapy Follow-up?with?Neurology (5) Cervicalgia: Code(s): M54.2 - Cervicalgia Category: Medical Plan: Neck?pain?and?back?pain?which?appeared?to?be?worse. Start?physical?therapy (6) Back pain: Code(s): M54.9 - Dorsalgia, unspecified Category: Medical Plan: As?above Orders: Orders PT Evaluation and Treatment Today M54.2 - Cervicalgia, M54.50 - Low back pain, unspecified, R51.9 - Headache, unspecified
--- OUTSIDE RECORDS SUMMARY | 2024-10-03 09:54 | XMS_ITS | Clinical Summary ---
Author Organization [employer] Address [address] [place] [address] [address] [place] [address] Care Team Providers Care Manager Market Research Name Role Phone Unavailable Primary Care Provider [...] of Phone Billing Address Personal/Family Self [phone] [place]
--- OUTSIDE RECORDS SUMMARY | 2024-10-03 09:54 | XMS_ITS | Clinical Summary ---
Author Organization [facility] Address [address] [place] [address] Care Team Providers Care Bricklayer'S Assistant Name Role Phone Eryn Angel PA-C Primary Care Provider [phone] Source Comments PLEASE NOTE, if this patient [...] on March 16, 2017 10:39 Encounter info: [id number], [facility], One Time [...] the myotendinous junction of the infraspinatus. WSN: [id number] Signature Line Dictated By: Maryse MD, Adeel [...] on 05 March 2014 13:59 Encounter info: [id number], [facility], One Time [...] on 15 October 2013 11:46 Encounter info: [id number], [facility], Disch ES, 10/15/2013 - 10/15/2013 * [...] on 15 October 2013 11:46 Encounter info: [id number], Jeffry COHEN, 10/15/2013 - 10/15/2013 * Final [...] on 03 September 2009 17:02 Encounter info: [id number], [facility], One Time [...] Plan of Treatment Not on file Insurance [place] Care Teams Bricklayer'S Assistant Relationship Specialty Start Date End Date Eryn Angel PA-C [address] [place] [phone] PCP - General Internal Medicine 09/28/14
== END 2024-10-03 17:05 | disposition home or self-care (01) ==
LOC: HO.HMCFM 09:03
PROVIDERS: PCP Family Medicine; Visit Provider Family Medicine
DX: E78.5 Hyperlipidemia, unspecified (principal); Z12.5 Encounter for screening for malignant neoplasm of prostate; R73.01 Impaired fasting glucose; G44.009 Cluster headache syndrome, unspecified, not intractable; M54.2 Cervicalgia; M54.9 Dorsalgia, unspecified

== ENCOUNTER → 2024-10-03 09:03 | Outpatient (BNVA) | payer MEDICARE, SELFPAY | PROVIDERS: PCP Family Medicine; Visit Provider Family Medicine | DX: Z13.89 Encounter for screening for other disorder (principal) ==

== ENCOUNTER 2024-10-10 09:31 | Outpatient (REF) | payer MEDICARE, SELFPAY ==
--- OUTSIDE RECORDS SUMMARY | 2024-10-10 10:41 | XMS_ITS | Clinical Summary ---
Author Organization [facility] Address [address] [place] [address] Care Team Providers Care Contracts Specialist Name Role Phone Eryn Angel PA-C Primary Care Provider [phone] Source Comments PLEASE NOTE, if this patient [...] on March 16, 2017 10:39 Encounter info: [id number], [facility], One Time OP, 03/15/2017 - * Final [...] the myotendinous junction of the infraspinatus. WSN: [id number] Signature Line Dictated By: Maryse MD, Adeel [...] on 05 March 2014 13:59 Encounter info: [id number], [facility], One Time OP, 03/05/2014 - 03/05/2014 * [...] on 15 October 2013 11:46 Encounter info: [id number], [facility], Disch ES, 10/15/2013 - 10/15/2013 * [...] By: Raleigh Villasenor MD Signed By: Raleigh Villaseonr MD Signed Date/Time: 10/15/13 11:46 am Transcribed [...] on 15 October 2013 11:46 Encounter info: [id number], Jeffry COHEN, 10/15/2013 - 10/15/2013 * Final [...] on 03 September 2009 17:02 Encounter info: [id number], [facility], One Time OP, 09/03/2009 - 09/03/2009 * [...] Plan of Treatment Not on file Insurance [place] Care Teams Contracts Specialist Relationship Specialty Start Date End Date Eryn Angel PA-C [address] [place] [phone] PCP - General Internal Medicine 09/28/14
[2024-10-10 11:21] LABS: C Reactive Protein 0.32 mg/dL (< or = 0.50)
[2024-10-10 11:53] LABS: Erythrocyte Sedimentation Rate 5 MM/HR (0-15)
== END 2024-10-10 09:32 | disposition home or self-care (01) ==
LOC: HO.WFDLDS 09:31
PROVIDERS: Visit Provider Registered Nurse
DX: G44.009 Cluster headache syndrome, unspecified, not intractable (principal)
CPT/HCPCS: 36415; 85652; 86140

== ENCOUNTER 2025-05-03 15:16 | Outpatient (AMB) | payer MEDICARE, SELFPAY ==
--- NOTE | 2025-05-03 15:30 | AM.OFFWIN_ITS ---
Intake Vital Signs 05/03/25 15:31 Height 6 ft Weight 163 lb BMI 22.1 BP 140/80 H Blood Pressure Location Lt brachial Position Sitting Pulse 56 Pulse Source Pulse Oximeter Temp 98.5 F Temp Source Oral Pulse Oximetry (%) 96 Oxygen Delivery Method Room Air Intake Visit Reasons: EP small red dots on face consistantly bleeding Patient Tobacco Use Status: Never used Tobacco Allergies gabapentin Allergy (Severe, Verified 05/03/25 15:34) Fainting influenza virus vacc trivalent, who Allergy (Intermediate, Verified 05/03/25 15:34) Vomiting, rash Do you need a note to return to daycare/school/sports/work: No HPI HPI Comments History of Present Illness Details History - The patient is a 74-year-old male 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 - History of skin cancer on the face, pr eviously surgically removed. - New lesions have been present for appr oximately three months, characterized by red dots that bleed and itch. - Lesions are described as having a root -like appearance beneath the surface and are not associated with pus or infection. - He states that he can pick them off an d then they bleed, sometimes the bleeding is hard to control. - No known small products i assembler currently manag ing the condition. - He has no redness, warmth, induration, or fevers. Physical Exam General: Cooperative, healthy appearing, comfortable, no acute distress and well developed Orientation: Patient oriented x3 Respiratory: Normal respiratory effort and able to speak in complete sentences. Clear to auscultation bilaterally. No w/r/r noted. Cardiovascular: RRR, no m/r/g noted. Normal S1 and S2 Skin: Two small flat crusted non-tender dry non-bleeding macules noted on the nose on the right nare and right cheek. 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 Plan - Referral to dermatology for further evaluation of the lesions to rule out recurrence of skin cancer. - No antibiotics required as there are no signs of infection. - keep area clean and dry - do not pick or scratch the area - follow up with PCP Orders: Referrals Dermatology Referral L98.9 - Disorder of the skin and subcutaneous tissue, unspecified Coding Level of Care Code Est Pt Level 3 (78920) Diagnoses Lesion of face L98.9
[2025-05-03 15:31] VITALS: BP 140/80; PULSE 56; TEMP 36.9; O2SAT 96; BMI 22.1
--- OUTSIDE RECORDS SUMMARY | 2025-05-03 18:14 | XMS_ITS | Clinical Summary ---
Author Organization [facility] Address [address] [place] [phone] Phone Care Team Providers Care Photography Assistant Name Role Phone Kirstin Aguayo DO Primary Care Provider [phone] Surgical History Surgery Date Site/Laterality Comments HERNIA REPAIR PROCEDURE: HISTORICAL HERNIA REPAIR/ING APPENDECTOMY PROCEDURE: [place] APPENDECTOMY SHOULDER SURGERY Left PROCEDURE: HISTORICAL SHOULDER SURGERY OTHER SURGICAL HISTORY 2017 PROCEDURE: [place] EXTRAPLEURAL ENUCLEATION EMPYEMA EMPYEMECTOMY; COMMENT: removal of a mass on the right lung, benign per pt Medical History Medical History Date Comments Hypertension DX:Hypertension BPH (benign prostatic hyperplasia) 07/29/2021 DX:BPH (benign prostatic hyperplasia) Gross hematuria 07/29/2021 DX:Gross hematur ia; COMMENT: PVU work up 07/29/2021 Family History Medical History Relation Name Comments Heart attack Mother Hypertension Mother Relation Name Status Comments Brother Alive Father Mother Social History Tobacco Use Types Packs/Day Years Used Date Smoking Tobacco: Former Cigarettes Smokeless Tobacco: Never Alcohol Use Standard Drinks/Week Comments No 0 (1 standard drink = 0.6 oz pur e alcohol) Sex and Gender Information Value Date Recorded Sex Assigned at Not on file Legal Sex Male 6:33 AM EST Gender Identity Not on file Sexual Orientation Not on file Obstetrics History Plan of Treatment Health Maintenance Due Date Last Done Comments DTaP,Tdap,and Td Vaccines (1 - Tdap) 08/31/1970 Pneumococcal Vaccine: 50+ Years (1 of 2 - PCV) 08/31/1970 RSV Immunization Adult Patients (1 - Risk 50-74 years 1-dose series) 08/31/2001 Zoster Vaccines (1 of 2) 08/31/2001 Abdominal Aortic Aneurysm (AAA) Screen 05/31/2022 Cholesterol Screening (Lipid Panel) 05/31/2022 Falls Risk Assessment 05/31/2022 Hepatitis C Screening 05/31/2022 Medicare Annual Wellness Visit 05/31/2022 Social Influencers of Health Screening 05/31/2022 Hypertension/CHF/CAD Annual BMP Blood Test 06/12/2022 Depression Screening 06/28/2024 COVID-19 Vaccine ( season) 2025 Influenza Vaccine (#1) 2025 Lung Cancer Screening (Low Dose CT) 11/17/2025 11/17/2024, 11/15/2023, 11/15/2023, Additional history exists Colorectal Cancer Screening: FIT-DNA (Cologuard) 04/14/2026 04/14/2023, 04/14/2023 HIB Vaccines Aged Out No longer eligi [...] on patient's age to complete this topic MMR Vaccines Aged Out No longer eligi ble based on patient's age to complete this topic Meningococcal ACWY Vaccine Aged Out N o longer eligible based on patient's age to complete this topic Meningococcal B Vaccine Aged Out No l onger eligible based on patient's age to complete this topic RSV Immunization Patients Under 20 months Aged Out No longer eligible based on patient's age to complete this topic Varicella Vaccines Aged Out No longer eligible based on patient's age to complete this topic Procedures Procedure Name Priority Date/Time Associated Diagnosis Comments CT LUNG SCREENING Routine 11/17/2024 11: 56 AM EDT Personal history of nicotine dependence Encounter for screening for malignant neoplasm of respiratory organs from Last 3 Months or Most Recently Relevant to Health Maintenance Results * CT Lung Screening (11/17/2024 11:56 AM EDT) Anatomical Region Laterality Modality Chest Computed Tomogra phy 11/17/2024 3:30 PM EDT Impressions 11/17/2024 3:33 PM EDT No suspicious pulmonary nodule. ASSESSMENT: LungRADS Category2: Benign Appearance/Behavior - Continue annual screening with LDCT in 12 months Please see below for additional details of LungRADS Algorithm. Complete Lung RADS description including probabilities of malignancy and prevalence can be found at: http://www.acr.org/Quality-Safety/Resources/LungRADS LungRADS Version 1.0 Assessment Categories Release date: October 23, 2013 Category 0: Incomplete - Additional lung cancer screening CT images and/or comparison with prior CT is needed. - Prior chest CT(s) being located for comparison. - Part or all of the lungs cannot be evaluated. Category 1: Negative - Continue annual screening with LDCT in 12 months - No lung nodules - Nodule(s) with specific calcifications (complete, central, popcorn, concentric rings) and fat containing nodules Category 2: Benign Appearance/Behavior - Continue annual screening with LDCT in 12 months - Solid nodule < 6 mm or new solid nodule < 4 mm. - Part solid nodule(s) < 6 mm total diameter on baseline screening. - Ground glass nodule < 20 mm or > 20 mm and unchanged or slowly growing. - Category 3 or 4 nodules unchanged for at least 3 months. Category 3: Probably Benign - 6 month LDCT - Solid nodule(s) > 6 to < 8 mm at baseline OR new 4 mm to < 6 mm. - Part solid nodule(s) > 6 mm total diameter with solid component < 6 mm OR new < 6 mm total diameter. - Ground glass nodule > [address] or new. Category 4A: Suspicious - 3 month LDCT; PET/CT may be used when there is ? 8 mm solid component - Solid nodule(s) > 8 to < 15 mm at baseline OR growing < 8 mm OR new 6 to < 8 mm. - Part solid nodule(s) > 6 mm with solid component > 6 mm to < 8 mm OR with a new or growing < 4 mm solid component. - Endobronchial nodule. Category 4B: Suspicious - Chest CT with or without contrast, PET/CT and/or tissue sampling depending on the probability of malignancy and comorbidities. PET/CT may be used when there is a > 8 mm solid component. - Solid nodule(s) > 15 mm OR new or growing and > 8 mm - Part solid nodule(s) with a solid component ? 8 mm OR a new or growing ? 4 mm solid component Category 4X: Suspicious - Chest CT with or without contrast, PET/CT and/or tissue sampling depending on the probability of malignancy and comorbidities. PET/CT may be used when there is a ? 8 mm solid component. - Category 3 or 4 nodules with additional features or imaging findings that increases the suspicion of malignancy. Category S: Clinically Significant or Potentially Clinically Significant Findings (non lung cancer) Category C: Modifier for patients with a prior diagnosis of lung cancer who return to screening NOTES: 1) Negative screen: does not mean that an individual does not have lung cancer. 2) Size: nodules should be measured on lung windows and reported as the average diameter rounded to the nearest whole number; for round nodules only a single diameter measurement is necessary. 3) Size Thresholds: apply to nodules at first detection, and that grow and reach a higher size category. 4) Growth: an increase in size of > 1.5 mm. 5) Exam Category: each exam should be coded 0-4 based on the nodule(s). 6) Exam Modifiers: S and C modifiers may be added to the 0-4 category. 7) Lung Cancer Diagnosis: Once a patient is diagnosed with lung cancer, further management (including additional imaging such as PET/CT) may be performed for purposes of lung cancer staging; this is no longer screening. 8) Practice audit definitions: a negative screen is defined as categories 1 and 2; a positive screen is defined as categories 3 and 4. 10) Category 4X: nodules with additional imaging findings that increase the suspicion of lung cancer, such as spiculation, GGN that doubles in size in 1 year, enlarged lymph nodes etc. 11) Nodules with features of an intrapulmonary lymph node should be managed by mean diameter and the 0-4 numerical category classification. 12) Category 3 and 4A nodules that are unchanged on interval CT should be coded as category 2, and individuals returned to screening in 12 months. 13) LDCT = low dose chest CT. -------- FINAL REPORT -------- Dictated By: Harriet Rojo Dictated Date: 11/17/2024 15:30 ET Assigned Physician: Harriet Rojo Reviewed and Electronically Signed By: Harriet Rojo Signed Date: 11/17/2024 15:33 ET Workstation ID: [id number] Transcribed By: Self Edit Transcribed Date: 11/17/2024 15:30 ET Narrative 11/17/2024 3:33 PM EDT History: 74 year-old 114 pack-year former smoker, asymptomatic, for lung cancer screening. 10 years since stopped Comparison: 11/15/2023 Technique: Helical volumetric imaging of the thorax was performed, using low- dose technique, without IV contrast. DLP: 10 mGy/cm CT dose reduction technique utilized with one or more of the following: Automated exposure control and/or adjustment of the mA and/or kV according to patient size and/or use of iterative reconstruction technique. Findings: Lungs: Postsurgical changes right lower lobe with areas of scarring. No residual or recurrent lesion. Peripheral reticulation in the anterior right lung unchanged. No suspicious pulmonary nodule. Stable 4 mm nodule in the right upper lobe unchanged. Few scattered tiny nodules unchanged. Pleura: There are no pleural effusions. No calcified or noncalcified pleural plaques. Heart/Aorta: Ascending aortic aneurysm with atherosclerotic plaque noted is unchanged. Esophagus: The esophagus is not significantly thickened or dilated. Lymph Nodes:Subcentimeter nodes. Upper Abdomen: This study was performed without contrast and with lower than standard dose. These factors reduce the sensitivity for detection of small lesions in the upper abdomen. Unremarkable. Osseous Structures: No suspicious osseous abnormalities. Procedure Note Harriet Rojo MD - 11/17/2024 History: 74 year-old 114 pack-year former smoker, asymptomatic, for lungcancer screening. 10 years since stopped Comparison: 11/15/2023 Technique: Helical volumetric imaging of the thorax was performed, usinglow-dose technique, without IV contrast. DLP: 10 mGy/cm CT dose reduction technique utilized with one or more of the following:Automated exposure control and/or adjustment of the mA and/or kV accordingto patient size and/or use of iterative reconstruction technique. Findings: Lungs: Postsurgical changes right lower lobe with areas of scarring. Noresidual or recurrent lesion. Peripheral reticulation in the anteriorright lung unchanged. No suspicious pulmonary nodule. Stable 4 mm nodulein the right upper lobe unchanged. Few scattered tiny nodulesunchanged. Pleura: There are no pleural effusions. No calcified or noncalcifiedpleural plaques. Heart/Aorta: Ascending aortic aneurysm with atherosclerotic plaque notedis unchanged. Esophagus: The esophagus is not significantly thickened or dilated. Lymph Nodes:Subcentimeter nodes. Upper Abdomen: This study was performed without contrast and with lowerthan standard dose. These factors reduce the sensitivity for detection ofsmall lesions in the upper abdomen. Unremarkable. Osseous Structures: No suspicious osseous abnormalities. IMPRESSION: No suspicious pulmonary nodule. ASSESSMENT: LungRADS Category2: Benign Appearance/Behavior - Continue annual screeningwith LDCT in 12 months Please see below for additional details of LungRADS Algorithm. CompleteLung RADS description including probabilities of malignancy and prevalencecan be found at: http://www.acr.org/Quality-Safety/Resources/LungRADS LungRADS Version 1.0 Assessment Categories Release date: October 23, 2013 Category 0: Incomplete - Additional lung cancer screening CT images and/orcomparison with prior CT is needed. - Prior chest CT(s) being located for comparison. - Part or all of the lungs cannot be evaluated. Category 1: Negative - Continue annual screening with LDCT in 12 months - No lung nodules - Nodule(s) with specific calcifications (complete, central, popcorn,concentric rings) and fat containing nodules Category 2: Benign Appearance/Behavior - Continue annual screening withLDCT in 12 months - Solid nodule < 6 mm or new solid nodule < 4 mm. - Part solid nodule(s) < 6 mm total diameter on baseline screening. - Ground glass nodule < 20 mm or > 20 mm and unchanged or slowlygrowing. - Category 3 or 4 nodules unchanged for at least 3 months. Category 3: Probably Benign - 6 month LDCT - Solid nodule(s) > 6 to < 8 mm at baseline OR new 4 mm to < 6 mm. - Part solid nodule(s) > 6 mm total diameter with solid component < 6 mmOR new < 6 mm total diameter. - Ground glass nodule > [address] or new. Category 4A: Suspicious - 3 month LDCT; PET/CT may be used when there is ?8 mm solid component - Solid nodule(s) > 8 to < 15 mm at baseline OR growing < 8 mm OR new 6 to< 8 mm. - Part solid nodule(s) > 6 mm with solid component > 6 mm to < 8 mm ORwith a new or growing < 4 mm solid component. - Endobronchial nodule. Category 4B: Suspicious - Chest CT with or without contrast, PET/CT and/ortissue sampling depending on the probability of malignancy andcomorbidities. PET/CT may be used when there is a > 8 mm solidcomponent. - Solid nodule(s) > 15 mm OR new or growing and > 8 mm - Part solid nodule(s) with a solid component ? 8 mm OR a new or growing ?4 mm solid component Category 4X: Suspicious - Chest CT with or without contrast, PET/CT and/ortissue sampling depending on the probability of malignancy andcomorbidities. PET/CT may be used when there is a ? 8 mm solidcomponent. - Category 3 or 4 nodules with additional features or imaging findingsthat increases the suspicion of malignancy. Category S: Clinically Significant or Potentially Clinically SignificantFindings (non lung cancer) Category C: Modifier for patients with a prior diagnosis of lung cancerwho return to screening NOTES: 1) Negative screen: does not mean that an individual does not have lungcancer. 2) Size: nodules should be measured on lung windows and reported as theaverage diameter rounded to the nearest whole number; for round nodulesonly a single diameter measurement is necessary. 3) Size Thresholds: apply to nodules at first detection, and that grow andreach a higher size category. 4) Growth: an increase in size of > 1.5 mm. 5) Exam Category: each exam should be coded 0-4 based on the nodule(s). 6) Exam Modifiers: S and C modifiers may be added to the 0-4 category. 7) Lung Cancer Diagnosis: Once a patient is diagnosed with lung cancer,further management (including additional imaging such as PET/CT) may beperformed for purposes of lung cancer staging; this is no longerscreening. 8) Practice audit definitions: a negative screen is defined as categories1 and 2; a positive screen is defined as categories 3 and 4. 10) Category 4X: nodules with additional imaging findings that increasethe suspicion of lung cancer, such as spiculation, GGN that doubles insize in 1 year, enlarged lymph nodes etc. 11) Nodules with features of an intrapulmonary lymph node should bemanaged by mean diameter and the 0-4 numerical category classification. 12) Category 3 and 4A nodules that are unchanged on interval CT should becoded as category 2, and individuals returned to screening in 12 months. 13) LDCT = low dose chest CT. -------- FINAL REPORT -------- Dictated By: Harriet Rojo Dictated Date: 11/17/2024 15:30 ET Assigned Physician: Harriet Rojo Reviewed and Electronically Signed By: Harreit Rojo Signed Date: 11/17/2024 15:33 ET Workstation ID: [id number] Transcribed By: Self Edit Transcribed Date: 11/17/2024 15:30 ET us Tresa Sanchez MD IMG CT PROCEDURES Final Result from Last 3 Months or Most Recently Relevant to Health Maintenance Insurance [address] [place] [address] [place] [address] Care Teams Photography Assistant Relationship Specialty Start Date End Date Kirstin Aguayo DO [address] [place] [address] PCP - General Internal Medicine 11/17/24
--- OUTSIDE RECORDS SUMMARY | 2025-05-03 18:14 | XMS_ITS | Clinical Summary ---
Author Organization [facility] Address [address] [place] [address] Care Team Providers Care Armament Aircraft Mechanic Name Role Phone Unavailable Primary Care Provider [...] COVID-19 Vaccine (1 - 2023-2 5 season) 2025 Influenza Vaccine (#1) 2025 Dental X-Ray: Full Mouth 10/29/2025 10/28/2022 HIB [...] Most Recently Relevant to Health Maintenance [facility]
--- OUTSIDE RECORDS SUMMARY | 2025-05-03 18:14 | XMS_ITS | Patient Health Record ---
Author Organization [facility] Address [address] [place] [address] Care Team Providers Care Clinical Research Nurse Coordinator Name Role Phone Isabell Frank M.D. Primary Care Provider Unavailab London Crawley Unavailable [phone] Reason For Referral No Information Medications Medication SIG (Take, Route, Frequency, Duration) Notes Start Date End Date Status Atorvastatin Calcium 10 MG 1 tablet Oral ly Once a day 12/08/2017 Active Aspirin 81 MG 1 tablet Orally Once a day 12/08/2017 Active Autodrop - 12/08/2017 Active Lidoderm Active Lisinopril-hydroCHLOROthiaz montrell 20-12.5 MG 1 tablet Orally Once a day 12/08/2017 Active Omeprazole 20 MG 1 capsule Orally Onc e a day 12/08/2017 Active Meloxicam 15 MG 1 tablet Orally Once a day 12/08/2017 Active Ciclopirox Olamine 0.77 % 1 application to affected area Externally Twice a day; Duration: 30 days Active Social History Tobacco Use: Social History Observation Description Date Details (start date - stop date) Former Smoker NA - NA Tobacco Use/Smoking Question Answer Notes Are you a: former smoker When did you stop smoking? 05/2017 Additional Findings: Tobacco Non-User Current no n-smoker Alcohol Screen Question Answer Notes Did you have a drink containing alcohol in the p ast year? No Points 0 Interpretation Negative Tobacco use other than smoking: Question Answer Notes Are you an other tobacco user? No Problems Problem Type SNOMED Code ICD Code Onset Dates Problem Status W/U Status Risk Notes Problem Tinea unguium (682884893) Tinea unguium (B35.1) Active confirmed Problem Plantar wart (75832789) Plantar wart (B07.0) Active confirmed Plan Of Treatment Pending Test Test Name Order Date [id number] NAIL, 6 OR MORE 12/09/2017 00735-WHQLRMH NAIL, 6 OR MORE 04/25/2018 97391-VIVRXCO NAIL, 6 OR MORE 07/25/2018 06886-Yhfi Destruction, -07/25/2018 94344-Pivh Destruction, -12/23/2017 99955-Vhut Destruction, -04/25/2018 61147-Ghrr Destruction, -12/09/2017 69818- Debride <25 sq cm 12/23/2017 05130 I&D ABSCESS- SIMPLE,SINGLE 018 Insurance Providers Payer Name Payer Address Payer Phone Subscriber Number Group Number Insured Name Patient Relationship to Insured Coverage Start Date Coverage End Date [facility] [address] [place] [address] [phone] [id number] Ez Evangelista Self - patient is the insured Medical (General) History Medical History History ICD Code abdominal pain - Reflux abdominal aortic aneurysm Constipation hard of hearing dizziness Inguinal Hernia-right Shortness of breath Muscle ache Back,Hip,and Knee pain High blood pressure copd osteo arthitis hyperlipidemia Surgical History Surgery Date(Month/Year) Hernia Repair 2001 appendectomy 1971 lt rotator cuff repair 2016
== END 2025-05-03 16:05 | disposition home or self-care (01) ==
PROVIDERS: PCP Family Medicine; Visit Provider Physician Assistant Medical
DX: L98.9 Disorder of the skin and subcutaneous tissue, unspecified (principal)

== ENCOUNTER → 2025-05-03 15:16 | Outpatient (BNVA) | payer MEDICARE, SELFPAY | PROVIDERS: PCP Family Medicine; Visit Provider Physician Assistant Medical | DX: L98.9 Disorder of the skin and subcutaneous tissue, unspecified (principal); Z85.820 Personal history of malignant melanoma of skin | CPT/HCPCS: 99212 ==

== ENCOUNTER 2025-06-07 07:57 | Outpatient (AMB) | payer MEDICARE, SELFPAY ==
--- NOTE | 2025-06-07 08:32 | A.OFFVIS_ITS ---
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 Assembler Required: Yes Electronic Sensing Equipment Assembler Services: Electronic Sensing Equipment Assembler Offered & Declined (daughter to translate) Accompanied by: Daughter Allergies gabapentin Allergy (Severe, Verified 06/07/25 08:35) Fainting influenza virus vacc trivalent, who Allergy (Intermediate, Verified 06/07/25 08:35) Vomiting, rash Medication List - Last Reconciled 06/07/25 by Raven Roa, DEONDRE acetaminophen ER 650 mg PO TID PRN 90 days albuterol sulfate 90 mcg/actuation 2 puffs inhalation Q4-6H PRN 30 days atorvastatin 10 mg PO DAILY 90 days clonidine HCl 0.05 mg (1/2 x 0.1 mg) PO DAILY PRN 30 days diclofenac sodium 1% 4 grams topical QID 14 days ibuprofen 600 mg PO TID 14 days losartan-hydrochlorothiazide 100-25 mg 1 tab PO DAILY 90 days kdkjpqdt-krr-UZ-lycopen-lutein 0.4 mg-300 mcg- 250 mcg (Centrum Silver) 1 tab PO DAILY 90 days omeprazole 20 mg PO DAILY 90 days simethicone (Gas Relief 80 (simethicone)) 80 mg PO BID-TID 30 days sumatriptan succinate 50 mg PO PRN tamsulosin 0.4 mg PO DAILY 90 days topiramate 50 mg PO DAILY 90 days verapamil ER 120 mg PO DAILY 90 days HPI Comments Details: 74-year-old man with left sided cluster headaches syndrome. He was doing okay. Headaches have been good and happened sometimes. Sumatriptan as needed helped. Neck pain was better after completing PT. Sleep was okay. [facility] Medical History Melanoma Surgical History History of eye surgery History of hernia surgery History of lung surgery History of surgery Social History Housing: House Alcohol intake: never Patient Tobacco Use Status: Never used Tobacco e-Cigarette/Vaping Use: Never Used Second Hand Smoke Exposure: No service: No Current occupational status: retired Cognitive needs: Yes (walker/cane) Hearing needs: Yes (hear aide) Vision needs: Yes (glasses) Review of Systems Const Denies chills, Denies daytime sleepiness, Denies difficulty sleeping, Denies fatigue, Denies fever(s), Denies frequent falls, Reports headache(s), Denies increased appetite, Denies poor appetite, Denies snoring, Denies weakness, Denies weight gain and Denies weight loss Eyes Denies loss of vision ENT Denies vertigo, Denies dizziness and Reports headache(s) Card Denies chest pain at rest, Denies chest pain with activity, Denies syncope, Denies leg edema and Denies palpitations Resp Denies snoring GI Denies constipation, Denies heartburn, Denies diarrhea and Denies nausea Denies urinary frequency, Denies urinary incontinence and Denies urinary urgency Musc Denies abnormal gait, Denies numbness and Denies tingling Skin/Breast Denies dry skin and Denies rash Neuro Denies abnormal gait, Denies vertigo, Denies dizziness, Denies syncope, Denies frequent falls, Reports headache(s), Denies lack of coordination, Denies loss of vision, Denies memory loss, Denies numbness, Denies restless legs, Denies seizure-like activity, Denies tingling, Denies paresthesias, Denies tremor(s) and Denies weakness Psych Denies anxiety, Denies depression, Denies auditory hallucinations, Denies memory loss, Denies visual hallucinations and Denies suicidal ideation Endo Denies fatigue and Denies palpitations Physical Exam Const Other: General Appearance:? normal, in no acute distress. Skin:? no rashes, no significant birthmarks. Heart:? S1, S2 normal, no murmurs. Lungs:? clear anteriorly and posteriorly. Extremities:? no edema. Psych:? alert, oriented, cognitive function intact, cooperative with exam. Neuro Other: Mental Status:?Normal attention, orientation, memory and affect.? Cranial Nerves:?Pupils are equal, round and reactive to light. External occular muscles are intact. Visual vidal are full. Face is symmetrical. Facial sensations are normal. Tongue is midline. Palate elevates symmetrically. Shoulder shrugging is normal. Hearing to bedside conversation is normal. Sensory Exam:?....? Coordination:?No ataxia,?no titubation.? Gait Exam: Within normal limits. Extrapyramidal System:?No tremor, rigidity with normal facial expressions.? Pronator Drift:?Not present.? Involuntary Movements:?No tremors seen.? Speech:?Normal.? Assessment & Plan Assessment & Plan (1) Cluster headaches: Code(s): G44.009 - Cluster headache syndrome, unspecified, not intractable Category: Medical Qualifiers: Headache chronicity pattern: unspecified pattern Intractability: not intractable Qualified Code(s): G44.009 - Cluster headache syndrome, unspecified, not intractable Plan: Continue verapamil ER 120mg 1 capsule daily. Continue sumatriptan 50mg 1 tablet as needed for headache. Follow up in 6 months or sooner as needed. (2) Cervicalgia: Code(s): M54.2 - Cervicalgia Category: Medical Plan . Medications: New sumatriptan succinate take 1 tab at onset of headache; if no relief may repeat 1 tab after at least 2 hrs; PO 10 tabs 5RF 30 days Discontinued sumatriptan succinate Discontinued Reason: Order 50 mg PO PRN Coding Level of Care Code Est Pt Level 4 (60596) Diagnoses Cluster headache, not intractable, unspecified chronicity pattern G44.009 Headache chronicity pattern: unspecified pattern Intractability: not intractable Cervicalgia M54.2
== END 2025-06-07 08:40 | disposition home or self-care (01) ==
LOC: HO.HSM 07:58
PROVIDERS: PCP Family Medicine; Referring Provider Family Medicine; Visit Provider Registered Nurse
DX: G44.009 Cluster headache syndrome, unspecified, not intractable (principal); M54.2 Cervicalgia
CPT/HCPCS: 99214

== ENCOUNTER → 2025-06-07 07:57 | Outpatient (BNVA) | payer MEDICARE, SELFPAY | PROVIDERS: PCP Family Medicine; Referring Provider Family Medicine; Visit Provider Registered Nurse | DX: G44.009 Cluster headache syndrome, unspecified, not intractable (principal); M54.2 Cervicalgia; Z79.899 Other long term (current) drug therapy | CPT/HCPCS: 99212 ==

== ENCOUNTER 2025-06-14 13:24 | Outpatient (AMB) | payer MEDICARE, SELFPAY ==
--- OUTSIDE RECORDS SUMMARY | 2025-06-12 11:00 | XMS_ITS | Encounter Summary ---
Author Organization [facility] Address [address] [place] [address] Care Team Providers Care Home Health Travel Ot Name Role Phone Bartolome Goncalves MD Primary Care Provider [phone] Reason for Visit * Reason Comments Skin Problem * Consultation (Urgent) - Authorized Specialty Diagnoses / Procedures Referred By Shobha whitmore Referred To Contact Dermatology Diagnoses Disorder of the skin and subcutaneous tissue, unspecified Daria Girard PA [address] [place] [address] Phone: tel: fax: [facility] [address] [address] Phone: tel: fax: Referral ID Status Reason Start Date Expiration Date Visits Requested Visits Authorized [id number] Authorized Specialty Services Required 06/17/2026 6 6 Encounter Details Date Type Department Care Team (Late st Contact Info) Description 06/12/2025 11:00 AM EST Office Visit [facility] [address] [address] Line Assembler: Jana Granger MD [address] [place] [id number] Dorian (Primary Dx); Neoplasm of uncertain behavior of skin Social History Tobacco Use Types Packs/Day Years Used Date Smoking Tobacco: Never Assessed Sex and Gender Information Value Date Recorded Sex Assigned at Male 05/18/2025 3:16 PM EST Legal Sex Male 10:28 AM EST Gender Identity Not on file Sexual Orientation Not on file documented as of this encounter Patient Instructions * Patient Instructions* Pilar Rodriguez CNA - 06/12/2025 11:00 AM EST WOUND CARE INSTRUCTIONS FOR SHAVE BIOPSY performed a shave biopsy. INITIAL DRESSING CARE: Initial dressing stays in place for 24 hours. Keep the dressing dry. Keep the dressing ON in the shower You may remove the dressing and continue with wound care DAILY DRESSING CARE: Wash hands before each dressing change. Change the bandage once daily. Remove the bandage. Gently cleanse the wound with a liquid soap and warm water. Then apply a thin layer of vaseline ointment. Cover the wound with a Band-aid. Continue wound care until healed. Keep wound covered. BLEEDING: If light bleeding occurs, apply direct pressure over the wound for 15-20 minutes with a clean cloth. If bleeding continues, repeat this cycle once again. If bleeding still persists, call us. DISCOMFORT: Keep the area elevated in the first 48 hours to decrease swelling and discomfort. You may ice the area of 10-15 minutes every hour for the first 24-48 hours while awake. For pain, take Tylenol (acetominophen) every 6 hours. Avoid alcohol and ibuprofen for 3 days. DO NOT stop aspirin if you currently take a daily aspirin. INFECTION: Signs of infection include increasing pain, increasing redness, swelling, drainage, red streaks, fever. If you experience any signs of infection, call the numbers listed below. PHONE NUMBERS TO CALL: Weekdays 8AM - 4PM: Call the Clinic at: [phone] and ask for the nurse. Weekends,evenings, nights: Call [phone] and ask for the Elementary Education Tutor bonderite operator. documented in this encounter Progress Notes * Tara Grullon MD - 06/13/2025 7:11 AM EST I saw and evaluated the patient. Case discussed with the resident/fellow and I agree with the findings and plan as documented in the resident's/fellow's note. I was present for the entire procedure. * Jana Chacko MD - 06/12/2025 11:19 AM EST Images from the original note were not included. DERMATOLOGY NEW PATIENT VISIT CHIEF COMPLAINT: spot on face HPI: Ez Evangelista is a 74 y.o. male who presents as a new patient to [facility] Department of Dermatology for above. Here with daughter Chanelle who assists in providing history. Today: - Noticed spot on the face a few months ago on the right nasal sidewall and underneath right eye. Is tender to palpation, bleeding, and itching. Tried topical cream (unknown which cream) that did nothelp. - Reportedly, had non-melanoma skin cancer 6 years ago for which he thinks he had Mohs surgery. At [facility]. PAST DERMATOLOGIC HISTORY: No specialty comments available. Allergies Meds Problems Med Hx Surg Hx Fam Hx PAST MEDICAL HISTORY: History reviewed. No pertinent past medical history. MEDICATIONS: Current Outpatient Medications on File Prior to Visit Medication Sig Dispense Refill acetaminophen (TYLENOL) 650 mg 8 hr tablet SMARTSI Tablet(s) By Mouth 3 Times Daily PRN albuterol (PROAIR HFA,VENTOLIN HFA) 90 mcg inhaler SMARTSI Puff(s) Every 4-6 Hours PRN cloNIDine (CATAPRES) 0.1 mg tablet SMARTSI.5 Tablet(s) By Mouth Daily PRN losartan-hydrochlorothiazide (HYZAAR) 100-25 mg per tablet SMARTSI Tablet(s) By Mouth Daily methylPREDNISolone (MEDROL DOSEPACK) 4 mg tablet TAKE 6 TABLETS ON DAY 1 DIRECTED ON PACKAGE ANDDECREASE BY 1 TAB EACH DAY FOR A TOTAL OF 6 DAYS omeprazole (PriLOSEC) 20 mg capsule SMARTSI Capsule(s) By Mouth Daily predniSONE (DELTASONE) 20 mg tablet PLEASE SEE ATTACHED FOR DETAILED DIRECTIONS simethicone (MYLICON) 80 mg chewable tablet SMARTSI Tablet(s) By Mouth 2-3 Times Daily SUMAtriptan (IMITREX) 50 mg tablet TAKE 1 TAB AT ONSET OF HEADACHE. IF NO RELIEF MAY REPEAT 1 TAB AFTER AT LEAST 2 HRS BY MOUTH tamsulosin (FLOMAX) 0.4 mg capsule SMARTSI Capsule(s) By Mouth Daily topiramate (TOPAMAX) 50 mg tablet SMARTSI Tablet(s) By Mouth Daily verapamil ER (VERELAN) 120 mg capsule SMARTSI Capsule(s) By Mouth Daily No current facility-administered medications on file prior to visit. ALLERGY: Allergies Allergen Reactions Lisinopril Cough and Unknown Cough- Chanelle Yen Tetanus Toxoid Unknown As per patient he took in [facility] and had severe allergic reaction. So he chose not to takle any vaccines PHYSICAL EXAM: The patient is a well-appearing male in no distress with a pleasant mood. A skin exam was performed today, which revealed: - 4 x 2 mm pink plaque on the right supramedial cheek - 3 x 2 mm pink plaque on the right nasal sidewall - Smooth, white papule on the right supramedial cheek and right chin ASSESSMENT & PLAN: Neoplasm of Uncertain Behavior, right supramedial cheek: Discussed that lesions today worrisome for BCC vs. desmoplastic trichoepithelioma vs. SCC vs. Other. See below for procedure note. Shave Biopsy Procedure Note Location(s): right nasal sidewall Size: 4 x 2 mm Differential Diagnosis: as above Anesthesia: lidocaine 2% with epinephrine 1:220,000 Procedure Details: Patient informed of the risks (including bleeding, infection, and scar) and benefits of the procedure and written informed consent was obtained. After a time out to confirm the patient's identification and the procedure to be performed, the site was cleaned using an alcohol pad and anesthetized. The specimen was then obtained via shave technique and sent for histopathologic analysis. Hemostasis was achieved with aluminium chloride. Vaselineointment and a bandage were applied. The patient tolerated the procedure well. Condition: Stable Complications: None Plan: 1. Instructed to keep the wound dry and covered for 24-48h and clean thereafter. 2. Wound care was reviewed verbally by nursing staff, and written instructions were sent home with the patient. Attending physician was present for the entirety of the procedure performed. 2. Neoplasm of Uncertain Behavior, right nasal sidewall: Discussed that lesions today worrisome for BCC vs. desmoplastic trichoepithelioma vs. SCC vs. Other. See below for procedure note. Shave Biopsy Procedure Note Location(s): right nasal sidewall Size: 3 x 2 mm Differential Diagnosis: as above Anesthesia: lidocaine 2% with epinephrine 1:220,000 Procedure Details: Patient informed of the risks (including bleeding, infection, and scar) and benefits of the procedure and written informed consent was obtained. After a time out to confirm the patient's identification and the procedure to be performed, the site was cleaned using an alcohol pad and anesthetized. The specimen was then obtained via shave technique and sent for histopathologic analysis. Hemostasis was achieved with aluminium chloride. Vaselineointment and a bandage were applied. The patient tolerated the procedure well. Condition: Stable Complications: None Plan: 1. Instructed to keep the wound dry and covered for 24-48h and clean thereafter. 2. Wound care was reviewed verbally by nursing staff, and written instructions were sent home with the patient. Attending physician was present for the entirety of the procedure performed. 3. Milia, right supramedial cheek and right chin: Benign. Reassurance provided. Patient was instructed to call with any problems or questions. FOLLOW UP: Return for pending biopsy results . Patient reviewed with and plan agreed with Dermatology Attending Dr Tanner Chacko, PGY-2 [facility] Department of Dermatology documented in this encounter Miscellaneous Notes * Addendum Note - Tara Grullon MD - 06/13/2025 7:11 AM ESTAddended by: TARA GRULLON on: 06/13/2025 07:11 AM Modules accepted: Level of Service documented in this encounter Plan of Treatment Not on file documented as of this encounter Procedures * Due to [place] state law, this organization might not be sharing negative HIV tests. Procedure Name Priority Date/Time Associated Diagnosis Comments TISSUE EXAM Routine 06/12/2025 11:36 AM EST Neoplasm of uncertain behavior of skin documented in this encounter Results * Due to [place] [employer] law, this organization might not be sharing negative HIV tests. * Tissue Exam (06/12/2025 11:36 AM EST) Final Diagnosis Specimen #1 - Skin, Right Supramedial Cheek, Shave Biopsy: - SURFACE OF BASAL CELL CARCINOMA, INFILTRATIVE FEATURES, EXTENDING TO THE TISSUE EDGES AND BASE. Specimen #2 - Skin, Right Nasal Sidewall, Shave Biopsy: - Minute fragment of transected epidermis. See comment. Comment: Sections demonstrate a superficial aspect of unremarkable epidermis. No dermis is identified in this sampling. Clinical correlation is recommended. Additional deeper levels are examined. [facility] MANUAL 06/14/2025 8:25 AM [facility] at 0825 EST Clinical History Specimen 1: 4 x 2 mm pink plaque on the right supramedial cheek Ddx: BCC vs. SCC vs. Other Specimen 2: 3 x 2 mm pink plaque on the right nasal sidewall Ddx: BCC vs. SCC vs. Other Yes [facility] MANUAL 06/14/2025 8:25 AM [facility] Gross Description 1. Skin, right supramedial cheek Received in formalin, labeled with the patient's name, MRN, date of , and right supramedial cheek , is a wyman-white, irregular skin shave (0.6 x 0.2 x 0.1 cm), which is markable for an ill-defined, irregular, wyman-pink, plaque-like lesion (0.6 x 0.3 cm), which comes within less than 0.1 cm of the nearest radial resection margin. The specimen is inked green, bisected, and entirely submitted in cassette 1A. 2. Skin, right nasal sidewall Received in formalin, labeled with the patient's name, MRN, date of , and right nasal sidewall , are 2 wyman-white, irregular skin shave (averaging 0.2 x 0.1 x 0.1 cm), which are differentially inked blue and green. The specimens are entirely submitted in toto in cassette 2A. [facility] MANUAL 06/14/2025 8:25 AM [facility] Gross Description User Grossing complete by Roslyn Del Toro on 06/12/2025 2:51 PM [facility]UAL 06/14/2025 8:25 AM EST [facility] Embedded Images [facility]UAL 06/14/2025 8:25 AM EST [facility] Resulting Agency Case was signed out at [facility], Department of Pathology, [employer] 3 CLIA [id number] [facility] MANUAL 06/14/2025 8:25 AM EST [facility] Report Header Surgical Pathology Report Case: [id number] Authorizing Provider: Tara Grullon MD Collected: 06/12/2025 1136 Ordering Location: [facility] Received: 06/12/2025 1426 [facility] 4th Floor Pathologist: Mahesh Polanco MD PhD Specimens: 1) - Skin, right supramedial cheek 2) - Skin, right nasal sidewall 06/14/2025 8:25 AM EST [facility] Skin Specimen from skin / Unknown 06/12/2025 11:36 AM EST 06/12/2025 2:26 PM EST Specimen from skin (specimen) Specimen from skin / Unknown 06/12/2025 11:40 AM EST 06/12/2025 2:26 PM EST us Tara Grullon MD LAB PATHOLOGY/CYTOLOGY ORDERAB LES Final Result [facility] [address] [place], [place] [address] [address] [place] [address] documented in this encounter Visit Diagnoses Diagnosis Milia- Primary Sebaceous cyst Neoplasm of uncertain behavior of skin documented in this encounter Care Teams Home Health Travel Ot Relationship Specialty Start Date End Date Bartolome Goncalves MD [address] [place] [address] PCP - General Family Medicine 05/18/25 documented as of this encounter
--- NOTE | 2025-06-14 13:27 | MHC.PC.OV ---
Vital Signs 06/14/25 13:30 Height 6 ft Weight 177 lb 2 oz BMI 24.0 BP 159/79 H Blood Pressure Location Rt brachial Position Sitting Respiration 14 Pulse 72 Pulse Source Pulse Oximeter Temp 97.0 F Temp Source Temporal Artery Scan Pulse Oximetry (%) 98 Oxygen Delivery Method Room Air Intake Visit Reasons: follow up right eye avalos/bump Intake Note: Follow up on bump on right eye. Child Health Associate Required: No Allergies gabapentin Allergy (Severe, Verified 06/14/25 13:27) Fainting influenza virus vacc trivalent, who Allergy (Intermediate, Verified 06/14/25 13:27) Vomiting, rash Medication List - Last Reconciled 06/14/25 by Bartolome Goncalves MD acetaminophen ER 650 mg PO TID PRN 90 days albuterol sulfate 90 mcg/actuation 2 puffs inhalation Q4-6H PRN 30 days atorvastatin 10 mg PO DAILY 90 days clonidine HCl 0.05 mg (1/2 x 0.1 mg) PO DAILY PRN 30 days diclofenac sodium 1% 4 grams topical QID 14 days hydrochlorothiazide 50 mg PO QAM 90 days ibuprofen 600 mg PO TID 14 days losartan 100 mg PO DAILY 90 days yztmyibv-pua-NB-lycopen-lutein 0.4 mg-300 mcg- 250 mcg (Centrum Silver) 1 tab PO DAILY 90 days omeprazole 20 mg PO DAILY 90 days simethicone (Gas Relief 80 (simethicone)) 80 mg PO BID-TID 30 days sumatriptan succinate take 1 tab at onset of headache; if no relief may repeat 1 tab after at least 2 hrs; PO 30 days tamsulosin 0.4 mg PO DAILY 90 days topiramate 50 mg PO DAILY 90 days verapamil ER 120 mg PO DAILY 90 days Tobacco use date assessed: 06/14/25 Fall risk assessment: No Falls in past year Last assessed Fall Risk: 06/14/25 Dental Screening Dental Screen Date: 06/14/25 Did you have a dental visit in the last 12 months?: Yes Did you have a dental problem in the last 6 months where you did not have access to dental care?: No Was dental information given to patient?: Patient has dentist HPI follow up right eye avalos/bump HPI Details Pt presents to f/u skin lesions. Pt notes he had been following up with dermatology and notes he had a recent biopsy done. BP today elevated at 159/79, 72p. He is on losartan-HCTZ 100-25mg, verapamil 120mg daily. Continues taking his artovastatin 10mg daily. Reports chest pain that lasts for a couple minutes. [facility] Medical History Melanoma Surgical History History of eye surgery History of hernia surgery History of lung surgery History of surgery Social History Housing: House Alcohol intake: never Patient Tobacco Use Status: Never used Tobacco e-Cigarette/Vaping Use: Never Used Second Hand Smoke Exposure: No service: No Current occupational status: retired Cognitive needs: Yes (walker/cane) Hearing needs: Yes (hear aide) Vision needs: Yes (glasses) Questionnaire PHQ-9 Over the last 2 weeks, how often have you been bothered by any of the following problems? 1. Little interest or pleasure in doing things: not at all 2. Feeling down, depressed, or hopeless: not at all 3. Trouble falling or staying asleep, or sleeping too much: not at all 4. Feeling tired or having little energy: not at all 5. Poor appetite or overeating: not at all 6. Feeling bad about yourself - or that you are a failure or have let yourself or your family down: not at all 7. Trouble concentrating on things, such as reading the newspaper or watching television: not at all 8. Moving or speaking so slowly that other people could have noticed. Or the opposite - being so fidgety or restless that you have been moving around a lot more than usual: not at all 9. Thoughts that you would be better off or of hurting yourself in some way: not at all Total score: 0 Depression Screening Interpretation: Negative Depression Screening Done: Yes 31595 - PHQ-9 Billing: Yes Source: Developed by Drs. John Munoz, Amelie Mendez, Kareem Billings and colleagues, with an educational kinsey from [employer]. Thrive Questionnaire Date Thrive assessed: 06/14/25 I am a: Patient What is your living situation today?: I have a steady place to live Within the past 12 months, did the food you bought not last and you didn't have the money to get more?: Never true Within the past 12 months, did you worry whether your food would run out before you got money to buy more?: Never true Do you have trouble paying for medicines?: No Do you have trouble getting transportation to medical appointments?: No Do you have trouble paying your heating and electricity bill?: No Do you have trouble taking care of your child, family member or friend?: No Do you have trouble with day-to-day activities such as bathing, preparing meals, shopping, managing finances, etc.?: Yes Are you currently unemployed and looking for a job?: No Are you interested in more education?: No Please select the resources that you would like help with: None Currently or been in a relationship where the following occur: No concerns reported THRIVE Score: 0 SILVIA-7 AMB Questionnaire SILVIA-7 Date SILVIA - 7 assessed: 06/14/25 Feeling nervous, anxious, or on edge: 0 = Not at all Not being able to stop or control worryin = Not at all Worrying too much about different things: 0 = Not at all Being so restless that it is hard to sit still: 0 = Not at all Becoming easily annoyed or irritable: 0 = Not at all Feeling afraid as if something awful might happen: 0 = Not at all Source: Developed by Drs. John Munoz, Amelie Mendez, Kareem Billings and colleagues, with an educational kinsey from [employer]. SILVIA-7 Assessment Billing SILVIA-7 Assessment Tool: SILVIA-7 Assessment 65997 Review of Systems Const Denies chills, Denies fatigue, Denies fever(s), Denies headache(s) and Denies weakness ENT Denies dizziness and Denies headache(s) Card Denies dyspnea Resp Denies cough, Denies dyspnea, Denies wheezing and Denies other (shortness of breath) Musc Denies numbness and Denies tingling Neuro Denies dizziness, Denies headache(s), Denies numbness, Denies tingling and Denies weakness Psych Denies anxiety and Denies depression Endo Denies fatigue Aller/Immun Denies wheezing Physical exam (Primary Care) Vital Signs: Last Vital Signs Temp 97.0 F 06/14/25 13:30 Pulse 72 06/14/25 13:30 Resp 14 06/14/25 13:30 BP 159/79 H 06/14/25 13:30 Pulse Ox 98 06/14/25 13:30 Oxygen Delivery Method Room Air 06/14/25 13:30 BMI result Body Mass Index 24.0 Tobacco/Smoking Status: Tobacco use Status Tobacco use date assessed 06/14/25 06/14/25 13:33 Patient Tobacco Use Status Never used Tobacco 06/14/25 13:33 e-Cigarette/Vaping Use Never Used 06/14/25 13:33 PHQ-9: PHQ-9 Score PHQ-9: Total score 0 06/14/25 14:24 Depression Screening Interpretation: Negative Thrive Assessment: Date of Thrive Assessment Date Thrive assessed 06/14/25 06/14/25 13:33 Currently or been in a relationship where the following occur: No concerns reported Const General: well developed; No acute distress Nutritional Appearance: well nourished Orientation/consciousness: patient oriented x3 HENMT Head: Yes normocephalic and Yes atraumatic Eyes General: appearance normal, both eyes and all related structures Pupils: Equal, round and reactive pupils present EOM: EOMs intact bilaterally Resp Effort & Inspection: normal respiratory effort Neuro General: patient oriented x3 and gait normal Cranial nerves: Yes Equal, round and reactive pupils present Psych Affect: normal affect Coding Level of Care Code Est Pt Level 5 (93634) Diagnoses Lesion of face L98.9 Hypertension I10 Hyperlipidemia E78.5 Chest pain R07.9 Osteoarthritis of knees, bilateral M17.0 Additional Codes SILVIA-7 Assessment Billing - SILVIA-7 Assessment Tool: SILVIA-7 Assessment 24857 ([id number]) PHQ-9 - 54766 - PHQ-9 Billing: Yes ([id number]) Assessment & Plan Assessment & Plan (1) Lesion of face: Code(s): L98.9 - Disorder of the skin and subcutaneous tissue, unspecified Category: Medical Plan: Neoplastic lesion which was removed and biopsied yesterday at Dermatology. Now has bandage. No erythema or drainage Bandage is clean Follow-up with dermatology as recommended (2) Hypertension: Code(s): I10 - Essential (primary) hypertension Category: Medical Plan: Blood pressures are too high. Goal is less than 130/80 Will increase hydrochlorothiazide Continue your other blood pressure medications as prescribed (3) Hyperlipidemia: Code(s): E78.5 - Hyperlipidemia, unspecified Category: Medical Plan: Taking atorvastatin as prescribed (4) Chest pain: Code(s): R07.9 - Chest pain, unspecified Category: Medical Plan: Patient notes some chest pain while rolling over in bed. As a few minutes and is somewhat dull EKG: Normal sinus rhythm, normal axis, no hypertrophy, no ST-T-wave changes Reassured patient. He will seek medical attention if he has pain lasting more than couple of minutes while resting or for any new, concerning symptoms. (5) Osteoarthritis of knees, bilateral: Code(s): M17.0 - Bilateral primary osteoarthritis of knee Category: Medical Plan: Osteoarthritis bilateral knees and difficulty walking long distances/greater than 100 ft without stopping. Had handicap placard previously and we will renew this. Orders: Orders AMB EKG-In Office 06/14/25 R07.9 - Chest pain, unspecified Medications: New losartan 100 mg PO DAILY 90 tabs 3RF 90 days hydrochlorothiazide 50 mg PO QAM 90 tabs 3RF 90 days Discontinued losartan-hydrochlorothiazide 100-25 mg Discontinued Reason: Duplicate 1 tab PO DAILY 90 days 90 tabs 3RF
[2025-06-14 13:30] VITALS: BP 159/79; PULSE 72; RESP 14; TEMP 36.1; O2SAT 98; BMI 24.0
--- OUTSIDE RECORDS SUMMARY | 2025-06-14 17:29 | XMS_ITS | Clinical Summary ---
Author Organization [facility] Address [address] [place] [phone] Phone Care Team Providers Care Exercise Physiology Professor Name Role Phone Kirstin Aguayo DO Primary Care Provider [phone] Surgical History Surgery Date Site/Laterality Comments HERNIA REPAIR PROCEDURE: HISTORICAL HERNIA REPAIR/ING APPENDECTOMY PROCEDURE: [place] APPENDECTOMY SHOULDER SURGERY Left PROCEDURE: HISTORICAL SHOULDER SURGERY OTHER SURGICAL HISTORY 2017 PROCEDURE: [place] EXTRAPLEURAL ENUCLEATION EMPYEMA EMPYEMECTOMY; COMMENT: removal of [...] on file Sexual Orientation Not on file Plan of Treatment Health Maintenance Due Date [...] Signed Date: 11/17/2024 15:33 ET Workstation ID: [id number] Transcribed By: Self Edit Transcribed Date: 11/17/2024 [...] Signed Date: 11/17/2024 15:33 ET Workstation ID: [id number] Transcribed By: Self Edit Transcribed Date: 11/17/2024 15:30 ET Tresa Sanchez MD IMG CT PROCEDURES Final Result from Last 3 Months or Most Recently Relevant to Health Maintenance Insurance MEDICAID - [place] MEDICARE ADVANTAGE GENERIC Care Teams Exercise Physiology Professor Relationship Specialty Start Date End Date Kirstin Aguayo DO [facility] [place] [address] PCP - General Internal Medicine 11/17/24
--- OUTSIDE RECORDS SUMMARY | 2025-06-14 17:29 | XMS_ITS | Clinical Summary ---
Author Organization [facility] Address [address] [place] [address] Care Team Providers Care Blow Pit Operator Name Role Phone Bartolome Goncalves MD Primary Care Provider [phone] Allergies Active Allergy Reactions Criticality Noted Date Comments Lisinopril Cough,Unknown Medium 11/01/2018 Cough- Chanelle Yen Tetanus Toxoid Unknown 03/25/2021 As per patient he took in [facility] and had severe allergic reaction. So he chose not to takle any vaccines Medications acetaminophen (TYLENOL) 650 mg 8 hr tablet SMARTSI Tablet(s) By Mouth 3 Times Daily PRN 5 Active albuterol (PROAIR HFA,VENTOLIN HFA) 90 mcg inhaler SMARTSI Puff(s) Every 4-6 Hours PRN 5 Active cloNIDine (CATAPRES) 0.1 mg tablet SMARTSI.5 Tablet(s) By Mouth Daily PRN 5 Active losartan-hydroc hlorothiazide (HYZAAR) 100-25 mg per tablet SMARTSI Tablet(s) By Mouth Daily 5 Active methylPREDNISol one (MEDROL DOSEPACK) 4 mg tablet TAKE 6 TABLETS ON DAY 1 DIRECTED ON PACKAGE AND DECREASE BY 1 TAB EACH DAY FOR A TOTAL OF 6 DAYS 5 Active omeprazole (PriLOSEC) 20 mg capsule SMARTSI Capsule(s) By Mouth Daily 5 Active predniSONE (DELTASONE) 20 mg tablet PLEASE SEE ATTACHED FOR DETAILED DIRECTIONS 5 Active simethicone (MYLICON) 80 mg chewable tablet SMARTSI Tablet(s) By Mouth 2-3 Times Daily 5 Active SUMAtriptan (IMITREX) 50 mg tablet TAKE 1 TAB AT ONSET OF HEADACHE. IF NO RELIEF MAY REPEAT 1 TAB AFTER AT LEAST 2 HRS BY MOUTH 5 Active tamsulosin (FLOMAX) 0.4 mg capsule SMARTSI Capsule(s) By Mouth Daily 5 Active topiramate (TOPAMAX) 50 mg tablet SMARTSI Tablet(s) By Mouth Daily 5 Active verapamil ER (VERELAN) 120 mg capsule SMARTSI Capsule(s) By Mouth Daily 5 Active Active Problems No known active problems Encounters Date Type Department Care Team Description 06/12/2025 11:00 AM EST Office Visit [facility] [address] [place] [phone] Vp Analytics: Jana Granger MD Milia (Primary Dx); Neoplasm of uncertain behavior of skin 05/18/2025 Transcribe Orders [facility] [address] [place] [phone] Vp Analytics: Daria Potter PA Disorder of the skin and subcutaneous tissue, unspecified (Primary Dx) from Last 3 Months Social History Tobacco Use Types Packs/Day Years Used Date Smoking Tobacco: Never Assessed Sex and Gender Information Value Date Recorded Sex Assigned at Male 05/18/2025 3:16 PM EST Legal Sex Male 10:28 AM EST Gender Identity Not on file Sexual Orientation Not on file Plan of Treatment Health Maintenance Due Date Last Done Comments Colonoscopy 1950 FOBT / Fit Test 1950 Sigmoidoscopy 1950 DTaP,Tdap,and Td Vaccines (1 - Tdap) 08/31/1973 Pneumococcal Vaccine: 50+ Years (1 of 1 - PCV) 08/31/2001 Zoster Vaccines (1 of 2) 08/31/2001 Alcohol/Substance Use Screening 06/28/2024 Health Care Proxy Review 06/28/2024 Influenza Vaccine (#1) 2025 COVID-19 Vaccine (1 - 2024-2 6 season) 2025 Cologuard 04/14/2026 04/14/2023, 04/14/2023 Colon Cancer Screening 04/14/2026 RSV Vaccine (60+ years old a nd patients) (1 - 1-dose 75+ series) 08/31/2026 Hepatitis B Vaccines Aged Out No long er eligible based on patient's age to complete this topic Procedures * Due to [place] KOWN law, this organization might not be sharing negative HIV tests. Procedure Name Priority Date/Time Associated Diagnosis Comments TISSUE EXAM Routine 06/12/2025 11:36 AM EST Neoplasm of uncertain behavior of skin from Last 3 Months Results * Due to [place] KOWN law, this organization might not be sharing [...] is recommended. Additional deeper levels are examined. [facility] 06/14/2025 8:25 AM EST [facility] at 0825 EST Clinical History Specimen 1: 4 x 2 mm pink plaque on the right supramedial cheek Ddx: BCC vs. SCC vs. Other Specimen 2: 3 x 2 mm pink plaque on the right nasal sidewall Ddx: BCC vs. SCC vs. Other Yes [facility] 06/14/2025 8:25 AM EST [facility] Gross Description 1. Skin, [...] entirely submitted in toto in cassette 2A. [facility] MANUAL 06/14/2025 8:25 AM EST [facility] Gross Description User Grossing complete by Roslyn Del Toro on 06/12/2025 2:[address] [facility] MANUAL 06/14/2025 8:[address] [facility] [facility]ITALNexwayF[facility] Embedded Images [facility] MANUAL 06/14/2025 8:25 AM EST [facility] Resulting Agency Case was signed out at [facility], Department of Pathology, [employer] [id number] [facility] MANUAL 06/14/2025 8:25 AM EST [employer] [facility] Report Header Surgical Pathology Report Case: [id number] Authorizing Provider: Margarito Hua MD Collected: 06/12/2025 1136 Ordering Location: [facility] Received: 06/12/2025 1426 [facility] 4th Floor Pathologist: Mahesh Polanco MD PhD Specimens: 1) - Skin, right supramedial cheek 2) - Skin, right nasal sidewall 06/14/2025 8:25 AM EST [facility] Skin Specimen from skin / Unknown 06/12/2025 11:36 AM EST 06/12/2025 2:26 PM EST Specimen from skin (specimen) Specimen from skin / Unknown 06/12/2025 11:40 AM EST 06/12/2025 2:26 PM EST us Margarito Hua MD LAB PATHOLOGY/CYTOLOGY ORDERAB LES Final Result [facility] [address] [place] [address], [facility] [address] [place] [address], [place] from Last [address] [place] [address] [place] [address] Care Teams Blow Pit Operator Relationship Specialty Start Date End Date Bartolome Goncalves MD [address] [place] [address] PCP - General Family Medicine 05/18/25
--- OUTSIDE RECORDS SUMMARY | 2025-06-14 17:29 | XMS_ITS | Clinical Summary ---
Author Organization [employer] Address [address] [place] [address] Care Team Providers Care Medical Safety Director Name Role Phone Unavailable Primary Care Provider [...] of 2 - PCV) 08/31/1970 Mammogram 1991 RSV Patients and Pa tients Aged 60 years or older (1 - Risk 50-74 years 1-dose series) 08/31/2001 Zoster Vaccines (1 of 2) 08/31/2001 Dental Oral Exam 05/01/2023 10/28/2022 Dental Prophylaxis 05/01/2023 10/28/2022 Tobacco Screening 10/29/2023 10/28/2022 COVID-19 Vaccine (1 - 2024-2 6 season) 2025 Influenza Vaccine (#1) 2025 Dental [...] Most Recently Relevant to Health Maintenance Insurance [facility] [place]
--- OUTSIDE RECORDS SUMMARY | 2025-06-14 17:29 | XMS_ITS | Patient Health Record ---
Author Organization [facility] Address [address] [place] [address] Care Team Providers Care Dehydrator Name Role Phone Isabell Frank M.D. Primary Care Provider Unavailab London Crawley Unavailable [phone] Reason For Referral No Information Medications Medication [...] W/U Status Risk Notes Problem Tinea unguium (429633197) Tinea unguium (B35.1) Active confirmed Problem Plantar wart (25856812) Plantar wart (B07.0) Active confirmed Plan Of Treatment Pending Test Test Name Order Date [id number] NAIL, 6 OR MORE 12/09/2017 [id number] NAIL, 6 OR MORE 04/25/2018 [id number] NAIL, 6 OR MORE 07/25/2018 [id number] Destruction, -07/25/2018 [id number] Destruction, -12/23/2017 [id number]-Jujr Destruction, -04/25/2018 [id number]-Rqdk Destruction, -12/09/2017 11635- Debride <25 sq cm 12/23/2017 23736 I&D ABSCESS- SIMPLE,SINGLE 018 Insurance Providers Payer Name Payer Address Payer Phone Subscriber Number Group Number Insured Name Patient Relationship to Insured Coverage Start Date Coverage End Date [facility] [address] [place] [address] [phone] [id number] Ez Evangelista Self - patient is the [...]
== END 2025-06-14 14:45 | disposition home or self-care (01) ==
LOC: HO.HMCFM 13:25
PROVIDERS: PCP Family Medicine; Visit Provider Family Medicine
DX: R07.9 Chest pain, unspecified (principal); I10 Essential (primary) hypertension; E78.5 Hyperlipidemia, unspecified; M17.0 Bilateral primary osteoarthritis of knee; D49.2 Neoplasm of unspecified behavior of bone, soft tissue, and skin

== ENCOUNTER → 2025-06-14 13:24 | Outpatient (BNVA) | payer MEDICARE, SELFPAY | PROVIDERS: PCP Family Medicine; Visit Provider Family Medicine | DX: M17.0 Bilateral primary osteoarthritis of knee (principal); I10 Essential (primary) hypertension; L98.9 Disorder of the skin and subcutaneous tissue, unspecified; E78.5 Hyperlipidemia, unspecified; R07.9 Chest pain, unspecified | CPT/HCPCS: 96127; 99212 ==